=== PATIENT | female | born 1995 | race Caucasian/White ===

== ENCOUNTER 2022-11-26 17:58 | Outpatient (REF) | payer MEDICAID, SELFPAY | END 2022-11-26 17:59 | disposition home or self-care (01) | LOC: NCHCN 17:58 | PROVIDERS: Visit Provider Family Medicine | DX: J02.9 Acute pharyngitis, unspecified (principal) | CPT/HCPCS: 87070 ==

== ENCOUNTER 2023-02-01 08:24 | Emergency (ER) | payer MEDICAID, SELFPAY ==
[2023-02-01 08:25] VITALS: BP 149/84; PULSE 71; RESP 15; TEMP 36.7; O2SAT 100
--- OUTSIDE RECORDS SUMMARY | 2023-02-01 08:43 | XMS_ITS | Continuity of Care Document ---
Author Name Unknown Organization [facility] Amb[facility] Address [address] [place] [address] Encounter [facility] NBR [id number] Date(s): 11/25/22 - 11/25/22 [facility] [address], [place] [address] Encounter Diagnosis Acute viral pharyngitis(Discharge Diagnosis) - 11/25/22 Discharge Disposition: Home or Self Care Attending Physician: Abdias JAVED, Katie Medications Ferretts Iron 325 mg (106 mg elemental iron) oral tablet 325 mg = 1 tab, Oral, Daily, # 90 tab, 0 Refill(s) Start Date: 11/25/22 Status: Ordered levothyroxine 125 mcg (0.125 mg) oral tablet 125 mcg = 1 tab, Oral, Daily, # 30 tab, 0 Refill(s) Start Date: 11/25/22 Status: Ordered Vitamin B-12 250 mcg =, Oral, Daily, 0 Refill(s) Start Date: 11/25/22 Status: Ordered Vitamin C 500 mg oral tablet 500 mg = 1 tab, Oral, Daily, # 90 tab, 0 Refill(s) Start Date: 11/25/22 Status: Ordered Vitamin D3 10,000 intl units oral capsule 250 mcg = 1 cap, Oral, Daily, # 5 cap, 0 Refill(s) Start Date: 11/25/22 Status: Ordered Results Laboratory List Name Date Rapid Strep POCT 11/25/22 Most recent to oldest [Reference Range]: 1 Rapid Strep POCT [Negative] Negative (11/25/22 11:00 AM) Vital Signs Most recent to oldest [Reference Range]: 1 Temperature Tympanic [36.6-37.9 Deg C] 3 6.4 Deg C *LOW* (11/25/22 10:43 AM) Peripheral Pulse Rate [60-100 bpm] 98 bp m (11/25/22 10:43 AM) Blood Pressure [90-140/60-90 mmHg] 130/8 2mmHg (11/25/22 10:43 AM) Weight 119.29 kg (11/25/22 10:43 AM) Weight Measured (lbs) 262.989 lb (11/25/22 10:43 AM) Height 176 cm (11/25/22 10:43 AM) Height/Length Measured (inches) 69.29 in (11/25/22 10:43 AM) BSA Measured 2.41 m2 (11/25/22 10:43 AM) Body Mass Index 38.51 kg/m2 (11/25/22 10:43 AM) Hospital Discharge Instructions Patient Education 11/25/2022 10:12:39 Pharyngitis Pharyngitis Pharyngitis is inflammation of the throat (pharynx). It is a very common cause of sore throat. Pharyngitis can be caused by a bacteria, but it is usually caused by a virus. Most cases of pharyngitis get better on their own without treatment. What are the causes? This condition may be caused by: ??? Infection by viruses (viral). Viral pharyngitis spreads easily from person to person (is contagious) through coughing, sneezing, and sharing of personal items or utensils such as cups, forks, spoons, and toothbrushes. ??? Infection by bacteria (bacterial). Bacterial pharyngitis may be spread by touching the nose or face after coming in contact with the bacteria, or through close contact, such as kissing. ??? Allergies. Allergies can cause buildup of mucus in the throat (post-nasal drip), leading to inflammation and irritation. Allergies can also cause blocked nasal passages, forcing breathing throughthe mouth, which dries and irritates the throat. What increases the risk? You are more likely to develop this condition if: ??? You are 5???24 years old. ??? You are exposed to crowded environments such as daycare, school, or dormitory living. ??? You live in a cold climate. ??? You have a weakened disease-fighting (immune) system. What are the signs or symptoms? Symptoms of this condition vary by the cause. Common symptoms of this condition include: ??? Sore throat. ??? Fatigue. ??? Low-grade fever. ??? Stuffy nose (nasal congestion) and cough. ??? Headache. Other symptoms may include: ??? Glands in the neck (lymph nodes) that are swollen. ??? Skin rashes. ??? Plaque-like film on the throat or tonsils. This is often a symptom of bacterial pharyngitis. ??? Vomiting. ??? Red, itchy eyes (conjunctivitis). ??? Loss of appetite. ??? Joint pain and muscle aches. ??? Enlarged tonsils. How is this diagnosed? This condition may be diagnosed based on your medical history and a physical exam. Your health careprovider will ask you questions about your illness and your symptoms. A swab of your throat may be done to check for bacteria (rapid strep test). Other lab tests may also be done, depending on the suspected cause, but these are rare. How is this treated? Many times, treatment is not needed for this condition. Pharyngitis usually gets better in 3???4 days without treatment. Bacterial pharyngitis may be treated with antibiotic medicines. Follow these instructions at home: Medicines ??? Take hjyf-upa-pnjhdeu and prescription medicines only as told by your health care provider. ??? If you were prescribed an antibiotic medicine, take it as told by your health care provider. Donot stop taking the antibiotic even if you start to feel better. ??? Use throat sprays to soothe your throat as told by your health care provider. ??? Children can get pharyngitis. Do not give your child aspirin because of the association with Little's syndrome. Managing pain To help with pain, try: ??? Sipping warm liquids, such as broth, herbal tea, or warm water. ??? Eating or drinking cold or frozen liquids, such as frozen ice pops. ??? Gargling with a mixture of salt and water 3???4 times a day or as needed. To make salt water, completely dissolve ?1 tsp (3???6 g) of salt in 1 cup (237 mL) of warm water. ??? Sucking on hard candy or throat lozenges. ??? Putting a cool-mist humidifier in your bedroom at night to moisten the air. ??? Sitting in the bathroom with the door closed for 5???10 minutes while you run hot water in the shower. General instructions ??? Do not use any products that contain nicotine or tobacco. These products include cigarettes, chewing tobacco, and vaping devices, such as e-cigarettes. If you need help quitting, ask your health care provider. ??? Rest as told by your health care provider. ??? Drink enough fluid to keep your urine pale yellow. How is this prevented? To help prevent becoming infected or spreading infection: ??? Wash your hands often with soap and water for at least 20 seconds. If soap and water are not available, use hand special deputy sheriff. ??? Do not touch your eyes, nose, or mouth with unwashed hands, and wash hands after touching theseareas. ??? Do not share cups or eating utensils. ??? Avoid close contact with people who are sick. Contact a health care provider if: ??? You have large, tender lumps in your neck. ??? You have a rash. ??? You cough up green, yellow-brown, or bloody mucus. Get help right away if: ??? Your neck becomes stiff. ??? You drool or are unable to swallow liquids. ??? You cannot drink or take medicines without vomiting. ??? You have severe pain that does not go away, even after you take medicine. ??? You have trouble breathing, and it is not caused by a stuffy nose. ??? You have new pain and swelling in your joints such as the knees, ankles, wrists, or elbows. These symptoms may represent a serious problem that is an emergency. Do not wait to see if the symptoms will go away. Get medical help right away. Call your local emergency services (911 in the [place] Do not drive yourself to the hospital. Summary ??? Pharyngitis is redness, pain, and swelling (inflammation) of the throat (pharynx). ??? While pharyngitis can be caused by a bacteria, the most common causes are viral. ??? Most cases of pharyngitis get better on their own without treatment. ??? Bacterial pharyngitis is treated with antibiotic medicines. This information is not intended to replace advice given to you by your health care provider. Make sure you discuss any questions you have with your health care provider. Document Revised: 07/05/2021 Document Reviewed: 07/05/2021 [employer] Patient Education ?? 2022 [email or web address]. Physician Outpatient Note * Katie Calero PA-C: PERFORM Event Display: Office Clinic Note Physician Authored Date: [id number] ROSCOE GANT :1995 Age:27 years Sex:Female Visit Date:11/25/2022 Chief Complaint Pt complains of a sore throat and thinks she has strep, feels like I have glass in my throat, fever 101.4F was the highest, taking tylenol and ibuprofen History of Present Illness Patient is a??27-year-old female who presents to the urgent care office today with??2 days of??sorethroat, headache and fever.?? She has not had any coughing, runny nose, ear pain, body aches,??vomiting, diarrhea, chest pain or shortness of breath. ??She has been using ibuprofen Tylenol [id number] for symptom management.?? History of recurrent??tonsillitis??due to strep in the past.?? No recent sick contacts. ??No international travel.?? Up-to-date with her vaccinations. Physical Exam Vitals & Measurements T:??36.4?C ??(Tympanic)?? HR:??98??(Peripheral)?? BP:??130/82?? SpO2:??98%?? HT:??176??cm?? WT:??119.29??kg?? BMI:??38.51?? BSA:??2.41?? Acutely ill-appearing but in no acute distress, accompanied by her 2 children. Conjunctiva are clear. TMs are both normal pearly schmitz. ??No cervical lymphadenopathy. Clear rhinorrhea. ??No tenderness to the mastoid sinuses. No trismus. Tonsils are nonerythematous and without exudate. ??No bulging of the soft palate. ??No petechiae, vesicles or papules on the soft palate. ??Uvula is midline. Lung sounds are clear in all lobes. Medical Decision Making: Sore throat: 27-year-old female with??24-hour history of sore throat, fever and headache. ??Rapid strep negative. ??Pending PCR strep results.?? Also differential includes viral??pharyngitis. ??I recommended only symptomatic treatment at this point with ibuprofen, Tylenol, salt water gargles,??sorethroat lozenges.?? I recommended that she be seen again if the symptoms are persisting greater than10 days,??check for mono.?? She declined discharge instructions. Assessment/Plan 1.??Acute viral pharyngitis??J02.9 Patient Education Pharyngitis Problem List/Past Medical History Ongoing No qualifying data Historical No qualifying data Medications Ferretts Iron 325 mg (106 mg elemental iron) oral tablet, 325 mg= 1 tab, Oral, Daily levothyroxine 125 mcg (0.125 mg) oral tablet, 125 mcg= 1 tab, Oral, Daily Vitamin B-12, 250 mcg, Oral, Daily Vitamin C 500 mg oral tablet, 500 mg= 1 tab, Oral, Daily Vitamin D3 10,000 intl units oral capsule, 250 mcg= 1 cap, Oral, Daily Allergies No active allergies Lab Results Test Name Test Result Date/Time Rapid Strep POCT Negative 11/25/2022 11:00 EDT Electronically Signed on 11/25/22 05:30 PM Katie Calero PA-C
--- OUTSIDE RECORDS SUMMARY | 2023-02-01 08:43 | XMS_ITS | Continuity of Care Document ---
Author Name Unknown Organization [facility] Address [address] [place] [address] Encounter [facility] NBR [id number] Date(s): 11/25/22 - 11/25/22 [facility] [address] [place] [address]- Discharge Disposition: Home or Self Care Attending Physician: Katie Calero PA-C Admitting Physician: Katie Calero PA-C Medications Ferretts Iron 325 mg (106 mg [...] Status: Ordered Results Laboratory List Name Date Strep A ([facility]) 11/25/22 Most recent to oldest [Reference Range]: 1 Streptococcus A -Gene[facility] [Not Detected ] Not Detected (11/25/22 11:10 AM)
--- NOTE | 2023-02-01 08:45 | ED.GENADUL_ITS ---
Discharge Plan Disposition Patient Disposition: Home Discharge Details Clinical Impression: Abdominal pain Primary Care Provider: None,None ED Provider: Rogelio Evans Home Meds and New Rx's Prescriptions: New ondansetron 4 mg tablet,disintegrating 4 mg PO Q8H PRN (Reason: nausea and vomiting) Qty: 10 0RF Continued levothyroxine 125 mcg capsule 125 mcg PO DAILY cholecalciferol (vitamin D3) 250 mcg (10,000 unit) capsule 250 mcg PO DAILY ferrous sulfate [Feosol] 325 mg (65 mg iron) tablet 325 mg PO DAILY ascorbic acid (vitamin C) 1,000 mg capsule 1 g PO Q6H Discharge Instructions Instructions: Abdominal Pain (ED) Additional Instructions: Please use wttt-oew-[id number] Mylanta as directed on packaging. It is recommended over the next 24 hours you start with a clear liquid diet and then slowly advance your diet as tolerated. Return to the emergency department for any new or significant worsening of symptoms otherwise follow-up with your primary care provider for recheck. As discussed please do not take any histamine medication such as Benadryl or Pepcid as you are excellently given more than the ordered dose in the emergency department. Monitor for extreme sedation or altered mental status and return immediately if this occurs. Referrals: [facility] [Provider Group] - 1 week Medical Decision Making Patient presenting to the emergency department for chief complaint of abdominal pain. Patient reports around 5:00pm yesterday patient started having progressively worsening abdominal pain causing nausea vomiting and diarrhea. She does state some referred back pain because of this along with a headache. Patient denies any fever chills, respiratory symptoms, chest pain or shortness of breath, denies urinary and vaginal symptoms as well. Physical exam shows female patient in moderate amount of visible pain with marked tenderness to palpation of the right lower and upper quadrants, patient did state some CVA tenderness but no marked increase in pain with CVA testing, exam otherwise noncontributory. Differential diagnosis to include kidney stone, cholecystitis, appendicitis, or other undifferentiated abdominal pathology. We will plan on checking labs and urine and performing CT imaging. Pending results will give patient fluids, Zofran, ketorolac and morphine. Reviewed patient's labs and CBC along with CMP is noncontributory and no specific significant remarkable findings are noted, urinalysis shows high specific gravity but otherwise no blood or signs of infection noted. CT imaging was unremarkable, patient reassessed and continues to have right upper quadrant pain so will perform ultrasound imaging to further evaluate gallbladder. Ultrasound imaging also reviewed and is unremarkable. Patient given Mylanta and Pepcid and did have some improvement of symptoms. Will refer patient to primary care provider for recheck of abdominal pain and otherwise prescribe some Zofran and recommended continued use of [id number] Pepcid and Mylanta. After discussion of diagnosis and plan of care patient has no further needs, questions, or concerns and states clear understanding to return to the emergency department for any worsening symptoms. At time of discharge incident was reviewed and patient accidentally received 400 mg of Pepcid compared to the ordered dose of 40 mg. Spoke with our pharmacist along with poison control that reviewed possible side effects but no significant concern for serious harm given patient's vital signs labs and BMI. Did inform patient of the unintentional Medicare along with symptoms to watch out for. Recommended that she have friend or family member be at home with her to observe for any extreme sedation or change in condition which she is stated that she would be admitted there. Patient discharged in stable condition. This documentation was generated using [employer] dictation system, please disregard any oddities of phrase or misspellings. Imaging Data Radiologic Study: Imaging: CT Scan Radiologist's impression: Exam(s) CT ABDOMEN PELVIS W EXAM: CT ABDOMEN PELVIS W CLINICAL HISTORY: RU/LQ pain. TECHNIQUE: Imaging Protocol: Axial computed tomography images with coronal and sagittal reformatted images were created and reviewed CONTRAST MATERIAL: Intravenous: Omnipaque 350 Contrast volume:100 ml Oral: no COMPARISON: No exams were available for comparison FINDINGS: ABDOMEN: Lung Bases: Normal where visualized. Liver: Enlarged. Moderate hepatic steatosis. No measurable mass. Gallbladder and biliary tract: No radiodense calculus or dilation. Pancreas: Normal density, no abnormal calcifications or inflammatory process. Spleen: Normal. Kidneys: Normal size, contour and axis. No radiodense stones or obstructive uropathy. No suspicious masses seen. Adrenal glands: No masses seen. Vasculature: Abdominal aorta non-dilated. Soft tissues: Unremarkable. PELVIS: Bladder: No gross wall thickening. No calculi.No focal mass. Bowel: No obstruction. No bowel wall thickening. Appendix normal. Quantity of stool. Peritoneal cavity: No ascites, collection or mesenteric inflammatory response. Bones: Unrem degenerative disc changes at L4-5. Reproductive organs: Post hysterectomy. Ovaries appear normal. Lymph nodes: Unremarkable. IMPRESSION:: Unremarkable CT scan of the abdomen and pelvis. Radiologic Study #2: Imaging: CT Scan Radiologist's impression: Exam(s) US ABDOMEN LIMITED EXAM: US ABDOMEN LIMITED CLINICAL HISTORY: RUQ pain TECHNIQUE: Ultrasound abdomen performed using standard protocol. COMPARISON: CT CT ABDOMEN PELVIS W from 02/01/2023 FINDINGS: GALLBLADDER: No evidence of cholelithiasis. No evidence of wall thickening. No pericholecystic fluid identified. LORD'S SIGN: Negative. BILIARY SYSTEM: No intrahepatic or extrahepatic biliary ductal dilation. RIGHT KIDNEY: Normal size. No evidence of renal calculi. No evidence of hydronephrosis. No suspicious renal mass. No cyst identified. PANCREAS: Normal where visualized. ASCITES: None seen. IMPRESSION: Normal sonographic appearance of the right upper quadrant. Lab Data Lab results reviewed: Yes I reviewed the patient's lab results. HPI General Mode of arrival: ambulatory . Date/Time Provider Initiated Documentation: 02/01/23 08:32 . Limitations to Documentation: no limitations . Information obtained by: patient and RN notes reviewed . History of Present Illness 27 year old F presents to the emergency department with the chief complaint of Abdominal pain, described as moderate and severe, Quality is described as aching, and is localized to the abdomen. Patient reports radiation to back. Patient started experiencing this day(s) (1) and it has been constant. No relieving factors improve symptom(s), No exacerbating factors reported . Patient notes nausea/vomiting. Patient did receive the following treatments prior to arrival, none Related Data Home Medications Medication Instructions Recorded Confirmed ascorbic acid (vitamin C) 1,000 mg 1 g PO Q6H 01/28/23 02/01/23 capsule cholecalciferol (vitamin D3) 250 250 mcg PO DAILY 01/28/23 02/01/23 mcg (10,000 unit) capsule ferrous sulfate 325 mg (65 mg 325 mg PO DAILY 01/28/23 02/01/23 iron) tablet (Feosol) levothyroxine 125 mcg capsule 125 mcg PO DAILY 01/28/23 02/01/23 ondansetron 4 mg disintegrating 4 mg PO Q8H PRN nausea and 02/01/23 tablet vomiting #10 tabs Previous Rx's Medication Instructions Recorded ondansetron 4 mg disintegrating 4 mg PO Q8H PRN nausea and 02/01/23 tablet vomiting #10 tabs Allergies Allergy/AdvReac Type Severity Reaction Status Date / Time No Known Allergies Allergy Verified 02/01/23 08:31 General Stated Complaint: Abd Prob GREGORY: 3 Review of Systems Constitutional Constitutional: Denies chills, Denies fever(s) and Reports poor appetite Cardiovascular Cardiovascular: Denies chest pain and Denies dyspnea Respiratory Respiratory: Denies cough and Denies dyspnea Gastrointestinal Gastrointestinal: Reports as per HPI, Reports abdominal pain, Denies melena, Denies change in bowel habits, Denies constipation, Reports diarrhea, Reports nausea and Reports vomiting Genitourinary Genitourinary: Denies hematuria, Denies dysuria and Denies flank pain Musculoskeletal Musculoskeletal: Reports back pain Integumentary/Breasts Skin/Breast: Denies rash PFSH All Active Problems (Updated 02/01/23 @ 13:17 by Rogelio Evans NP) Abdominal pain (Acute) Lula's thyroiditis (Acute) Surgical History (Updated 02/01/23 @ 08:47 by Rogelio Evans NP) Previous section S/P partial hysterectomy Social History Smoking/Tobacco Use Status: Never Smoking risk assessment performed?: Yes Alcohol Intake: never Drug use: Never Substance use type: does not use Housing: house Do you feel safe at home: Yes Do you feel safe in your relationship?: Yes Exam Const General: cooperative Orientation: alert, awake and oriented x3 Resp Effort & Inspection: normal respiratory effort and able to speak in complete sentences Auscultation: clear to auscultation bilaterally Cardio Rate: regular rate Rhythm: regular rhythm Heart Sounds: S1 normal and S2 normal GI Palpation: soft, no hepatosplenomegaly, not firm, no guarding, no masses, no pulsatile masses, not rigid, no splenomegaly and tender in the RLQ and in the RUQ Auscultation: normal bowel sounds Back/Spine/Pelvis Back: no CVA tenderness Neuro General: patient alert, patient awake, patient oriented x3, gait normal and moves all extremities Course Vital Signs Vital signs: Vital Signs Temperature 36.7 C 02/01/23 08:25 Pulse 71 02/01/23 08:25 Respiratory Rate 15 02/01/23 08:25 Blood Pressure 149/84 H 02/01/23 08:25 Pulse Oximetry 100 02/01/23 08:25 Temperature 36.7 C 02/01/23 08:25 Temperature Source Temporal Artery Scan 02/01/23 08:25 Pulse 71 02/01/23 08:25 Respiratory Rate 15 02/01/23 08:25 Respiratory Effort Normal 02/01/23 08:29 Blood Pressure 149/84 H 02/01/23 08:25 Blood Pressure Position Sitting 02/01/23 08:25 Pulse Oximetry 100 02/01/23 08:25 Oxygen Delivery Method Room Air 02/01/23 08:25 Oxygen Flow Rate 0 02/01/23 08:25 Pain Level 10 02/01/23 08:25
[2023-02-01 09:07] LABS: Abs Immature Grans 0.02 10^3/uL (0.0-0.06); Absolute Basophil Count 0.04 10^3/uL (0.0-0.2); Absolute Eosinophil Count 0.03 10^3/uL (0.0-0.7); Absolute Lymphocyte Count 2.37 10^3/uL (1.2-3.4); Absolute Monocyte Count 0.76 10^3/uL (0.1-0.8); Absolute Neutrophil Count 7.26 10^3/uL (1.2-6.7); Basophils % 0.4; Eosinophils % 0.3; HCT 43.3 % (36.0-46.0); HGB 14.1 g/dL (11.2-15.7); Immature Grans % 0.2; Lymphocytes % 22.6; MCH 26.7 pg (27.0-33.0); MCHC 32.6 % (32.0-36.0); MCV 82 fL (80-95); MPV 9.7 fL (8.0-11.0); Monocytes % 7.3; Neutrophils % 69.2; Platelet Count 318 10^3/uL (130-400); RBC 5.28 10^6/uL (3.93-5.22); RDW 14.4 % (11.7-14.6); WBC 10.48 10^3/uL (4.4-10.8)
[2023-02-01] MEDS: Ondansetron 4 MG/2 ML VIAL IVP (09:15)
[2023-02-01] MEDS: Normal Saline 1,000 ML 1000 ML IV (09:15)
[2023-02-01 09:17] LABS: Bilirubin Negative (Negative); Blood Negative (Negative); Clarity Clear (Clear); Glucose Negative (Negative); Ketones Negative (Negative); Leukocyte Esterase Negative (Negative); Nitrite Negative (Negative); Specific Gravity >= 1.030 (1.005-1.025); Urobilinogen 0.2 mg/dL (Up to 0.2)
[2023-02-01] MEDS: Ketorolac 15 MG/ML VIAL IVP (09:18)
[2023-02-01 09:20] VITALS: PULSE 53; RESP 12; O2SAT 98
[2023-02-01 09:33] LABS: ALT 31 U/L (14-59); AST 19 U/L (15-37); Albumin 3.8 g/dL (3.4-5.0); Alkaline Phosphatase 71 U/L (46-116); Anion Gap 8.5 mmol/L (3-11); BUN 14 mg/dL (7-18); Bilirubin, Total 0.4 mg/dL (0.2-1.0); CO2 26.5 mmol/L (21.0-32.0); CREATININE 0.7 mg/dL (0.55-1.02); Calcium 9.4 mg/dL (8.5-10.1); Chloride 103 mmol/L (98-107); Estimated GFR 120.74 (mL/min/1.73m2); Glucose 114 mg/dL (74-106); Lipase 32 U/L (16-77); Magnesium 2.1 mg/dL (1.8-2.4); Potassium 3.9 mmol/L (3.5-5.1); Sodium 138 mmol/L (136-145); Total Protein 8.3 g/dL (6.4-8.2)
[2023-02-01] MEDS: Normal Saline - Diluent 50 ML VIAL IV (10:04)
[2023-02-01] MEDS: Omnipaque 350 MG/ML 500 ML BTL-Imaging package IJ (10:06)
--- NOTE | 2023-02-01 10:10 | DI.CT_ITS ---
Exam(s) CT ABDOMEN PELVIS W EXAM: CT ABDOMEN PELVIS W CLINICAL HISTORY: RU/LQ pain. TECHNIQUE: Imaging Protocol: Axial computed tomography images with coronal and sagittal reformatted images were created and reviewed CONTRAST MATERIAL: Intravenous: Omnipaque 350 Contrast volume:100 ml Oral: no COMPARISON: No exams were available for comparison FINDINGS: ABDOMEN: Lung Bases: Normal where visualized. Liver: Enlarged. Moderate hepatic steatosis. No measurable mass. Gallbladder and biliary tract: No radiodense calculus or dilation. Pancreas: Normal density, no abnormal calcifications or inflammatory process. Spleen: Normal. Kidneys: Normal size, contour and axis. No radiodense stones or obstructive uropathy. No suspicious m asses seen. Adrenal glands: No masses seen. Vasculature: Abdominal aorta non-dilated. Soft tissues: Unremarkable. PELVIS: Bladder: No gross wall thickening. No calculi.No focal mass. Bowel: No obstruction. No bowel wall thickening. Appendix normal. Quantity of stool. Peritoneal cavity: No ascites, collection or mesenteric inflammatory response. Bones: Unrem degenerative disc changes at L4-5. Reproductive organs: Post hysterectomy. Ovaries appear normal. Lymph nodes: Unremarkable. IMPRESSION:: Unremarkable CT scan of the abdomen and pelvis. RADIATION DOSE DELIVERED: Total DLP DATA REPOSITORY: All CT scans at this facility are submitted to the National Radiology Data Registry (NRDR) Dose Index Registry (DIR) with the [employer] (ACR). RADIATION OPTIMIZATION: All CT scans at this facility use at least one of these dose optimization te chniques: automated exposure control; mA and/or kV adjustment per patient size (includes targeted exa ms where dose is matched to clinical indication); or iterative reconstruction.
[2023-02-01 10:38] VITALS: O2SAT 98
[2023-02-01 10:40] VITALS: O2SAT 97
--- NOTE | 2023-02-01 10:45 | DI.US_ITS ---
Exam(s) US ABDOMEN LIMITED EXAM: US ABDOMEN LIMITED CLINICAL HISTORY: RUQ pain TECHNIQUE: Ultrasound abdomen performed using standard protocol. COMPARISON: CT CT ABDOMEN PELVIS W from 02/01/2023 FINDINGS: GALLBLADDER: No evidence of cholelithiasis. No evidence of wall thickening. No pericholecystic fluid identified. LORD'S SIGN: Negative. BILIARY SYSTEM: No intrahepatic or extrahepatic biliary ductal dilation. RIGHT KIDNEY: Normal size. No evidence of renal calculi. No evidence of hydronephrosis. No suspicious renal mass. No cyst identified. PANCREAS: Normal where visualized. ASCITES: None seen. IMPRESSION: Normal sonographic appearance of the right upper quadrant. DATA REPOSITORY:
[2023-02-01] MEDS: Mylanta Suspension 30 ML CUP PO (12:17)
--- NOTE | 2023-02-01 13:23 | NUR.NOTE ---
Referral faxed for Pt to be seen at [facility]. She has been given an appt time to establish a [facility] Dr previously. So that is why the fax was sent there. It was recommended that Pt be seen within 1-2 weeks.
[2023-02-01 13:32] VITALS: BP 140/62; PULSE 62; RESP 18; O2SAT 100
== END 2023-02-01 14:12 | disposition home or self-care (01) ==
PROVIDERS: Emergency Provider Nurse Practitioner Family
DX: R10.9 Unspecified abdominal pain (principal); R11.2 Nausea with vomiting, unspecified; R19.7 Diarrhea, unspecified; E06.3 Autoimmune thyroiditis; Z79.899 Other long term (current) drug therapy
CPT/HCPCS: 36415; 80053; 83690; 96361; 96374; 96375; 99285; 74177; 76705; 81003; 83735; 85025; J1885; J2405

== ENCOUNTER 2023-02-02 18:02 | Emergency (ER) | payer MEDICAID, SELFPAY ==
[2023-02-02 18:06] VITALS: BP 142/88; PULSE 57; RESP 18; TEMP 36.9; O2SAT 97
[2023-02-02 18:31] LABS: Bilirubin Negative (Negative); Blood Negative (Negative); Clarity Clear (Clear); Glucose Negative (Negative); Ketones Negative (Negative); Leukocyte Esterase Negative (Negative); Nitrite Negative (Negative); Specific Gravity 1.025 (1.005-1.025); Urobilinogen 0.2 mg/dL (Up to 0.2)
[2023-02-02] MEDS: Ondansetron 4 MG/2 ML VIAL IVP (18:34)
[2023-02-02] MEDS: Normal Saline 1,000 ML 1000 ML IV (18:35)
[2023-02-02] MEDS: Sucralfate 1 GM TAB PO (18:35)
[2023-02-02] MEDS: ACETAMINOPHEN 1,000 MG/100 ML BTL 400 MG IVPB (18:36)
[2023-02-02 18:43] LABS: Abs Immature Grans 0.03 10^3/uL (0.0-0.06); Absolute Basophil Count 0.07 10^3/uL (0.0-0.2); Absolute Eosinophil Count 0.12 10^3/uL (0.0-0.7); Absolute Monocyte Count 1.13 10^3/uL (0.1-0.8); Basophils % 0.6; HCT 42.6 % (36.0-46.0); HGB 13.8 g/dL (11.2-15.7); Immature Grans % 0.2; Lymphocytes % 23.7; MCHC 32.4 % (32.0-36.0); MCV 83 fL (80-95); MPV 9.9 fL (8.0-11.0); Monocytes % 9.2; Neutrophils % 65.3; Platelet Count 330 10^3/uL (130-400); RBC 5.12 10^6/uL (3.93-5.22); RDW 14.3 % (11.7-14.6); RDW-SD 43.3 fL
[2023-02-02 18:48] LABS: Absolute Lymphocyte Count 2.92 10^3/uL (1.2-3.4); Absolute Neutrophil Count 8.03 10^3/uL (1.2-6.7)
[2023-02-02 19:07] LABS: ALT 38 U/L (14-59); AST 23 U/L (15-37); Albumin 4.1 g/dL (3.4-5.0); Alkaline Phosphatase 75 U/L (46-116); Anion Gap 8.7 mmol/L (3-11); BUN 12 mg/dL (7-18); Bilirubin, Total 0.2 mg/dL (0.2-1.0); CO2 29.3 mmol/L (21.0-32.0); CREATININE 0.7 mg/dL (0.55-1.02); Calcium 9.3 mg/dL (8.5-10.1); Chloride 102 mmol/L (98-107); Estimated GFR 120.74 (mL/min/1.73m2); Glucose 97 mg/dL (74-106); Lipase 40 U/L (16-77); Magnesium 2.3 mg/dL (1.8-2.4); Potassium 3.6 mmol/L (3.5-5.1); Sodium 140 mmol/L (136-145); Total Protein 8.5 g/dL (6.4-8.2); Troponin I < 50 ng/L (<or=60)
[2023-02-02] MEDS: HYDROmorphone 2 MG/ML SYR 0.5 MG IVP (19:07)
[2023-02-02] MEDS: Pantoprazole 40 MG VIAL IVP (19:40)
[2023-02-02] MEDS: Normal Saline - Diluent 50 ML VIAL IJ (21:06)
[2023-02-02] MEDS: Omnipaque 350 MG/ML 100 ML BTL IJ (21:09)
--- NOTE | 2023-02-02 21:14 | DI.CT_ITS ---
Exam(s) CT ABDOMEN PELVIS W EXAM: CT ABDOMEN PELVIS W CLINICAL HISTORY: abd/epgastric pain. TECHNIQUE: Imaging Protocol: Axial computed tomography images with coronal and sagittal reformatted images were created and reviewed CONTRAST MATERIAL: Intravenous: Omnipaque 350 Contrast volume:100 ml Oral: no COMPARISON: CT CT ABDOMEN PELVIS W from 02/01/2023 FINDINGS: ABDOMEN and PELVIS: Lung Bases: Normal dependent changes. Liver: Enlarged. Hepatic steatosis. No measurable mass. Gallbladder and biliary tract: No radiodense calculus or dilation. Pancreas: Normal density. No abnormal calcifications or inflammatory process. No evidence of mass. Spleen: Normal. Kidneys: Normal size, contour and axis. No radiodense stones. No obstructive uropathy. No suspicious masses seen. Adrenal glands: No masses seen. Vasculature: Abdominal aorta non-dilated. Soft tissues: Unremarkable. Bladder: No gross wall thickening. No calculi.No focal mass. Bowel: No obstruction. No bowel wall thickening. Appendix normal. Peritoneal cavity: No ascites. No focal collection or mesenteric inflammatory response. Bones: Degenerative disc changes at L4-5. Scattered tiny sclerotic foci in the pelvis and proximal f emurs likely bone islands. Reproductive organs: Status post hysterectomy. Ovaries unremarkable. Lymph nodes: Scattered small mesenteric lymph nodes. Unchanged from prior. IMPRESSION:: No acute abnormality. RADIATION DOSE DELIVERED: Total DLP DATA REPOSITORY: All CT scans at this facility are submitted to the National Radiology Data Registry (NRDR) Dose Index Registry (DIR) with the [employer] (A[employer]). RADIATION OPTIMIZATION: All CT scans at this facility use at least one of these dose optimization te chniques: automated exposure control; mA and/or kV adjustment per patient size (includes targeted exa ms where dose is matched to clinical indication); or iterative reconstruction.
--- NOTE | 2023-02-02 21:33 | ED.GENADUL_ITS ---
Discharge Plan Disposition Patient Disposition: Home Discharge Details Clinical Impression: Abdominal pain Primary Care Provider: None,None ED Provider: Rogelio Evans Home Meds and New Rx's Prescriptions: New sucralfate [Carafate] 1 gram tablet 1 g PO BID Qty: 30 0RF pantoprazole [Protonix] 20 mg tablet,delayed release (DR/EC) 20 mg PO DAILY 28 Days Qty: 28 0RF Continued levothyroxine 125 mcg capsule 125 mcg PO DAILY cholecalciferol (vitamin D3) 250 mcg (10,000 unit) capsule 250 mcg PO DAILY ferrous sulfate [Feosol] 325 mg (65 mg iron) tablet 325 mg PO DAILY ascorbic acid (vitamin C) 1,000 mg capsule 1 g PO Q6H ondansetron 4 mg tablet,disintegrating 4 mg PO Q8H PRN (Reason: nausea and vomiting) Qty: 10 0RF Discharge Instructions Instructions: Abdominal Pain (ED) Additional Instructions: As discussed please have bowel rest for the next 24 to 48 hours with clear liquid diet only and then slowly advancing your diet tube bland food such as plain rice, we will check in, or toast. Then if that goes well please slowly increase your diet as tolerated. A referral has been given to general surgery for you to follow-up given your significant abdominal pain. Please take the new medications as prescribed unless changed by specialty provider or your primary care doctor. Please return for any new or significant worsening of symptoms. Referrals: [facility] [Provider Group] Medical Decision Making Patient presenting the emergency department for chief complaint of abdominal pain. Patient was seen by myself yesterday for the same complaint and she states that pain has been unchanged and has not improved at all. She has been following recommendations except did have some food today. She states only nausea no vomiting, 1 episode of loose stools but continued pretty severe pain and discomfort in the abdomen. Physical exam is pretty much the same as yesterday with soft abdomen no rigidity, tenderness in the right upper and lower quadrants with some noted in the epigastrium otherwise nonfocal exam. We will plan on rechecking patient's labs, giving acetaminophen and Zofran. Initially thought about giving ketorolac but there is some concern for possible peptic ulcer so we will hold off on any NSAIDs or steroids. We will give Carafate Reviewed labs which does show some leukocytosis which was not present yesterday but otherwise unremarkable labs, urine is also unremarkable and no blood or infection is noted. Reassessed patient and she still was not feeling any better so she was given small amount of hydromorphone. Patient reassessed and still not improving in spite of hydromorphone. Discussed with patient CT imaging given continued pain and discomfort that is concerning the patient, slight leukocytosis, and lack of improvement. After discussion of risk versus benefit we did decide to proceed with CT imaging. Pending those results will give GI cocktail and Protonix. Repeat CT imaging compared to yesterday's imaging by radiologist and shows multiple nonpathologic lymph nodes in the upper abdomen and right lower quadrant that may be the cause of patient's discomfort. Question if this is possible viral etiology. I do not believe that patient has any surgical emergency. Reassessed patient to discuss CT imaging and she does state improvement of overall symptoms. I do feel this is reassuring and that patient is appropriate for discharge. We will place patient on referral to general surgery for recheck of abdominal pain and discussion of possible further testing as needed especially if continued outpatient Protonix and Carafate are not effective. After discussion of diagnosis and plan of care patient has no further needs, questions, or concerns and states clear understanding to return to the emergency department for any worsening symptoms. This documentation was generated using [employer] dictation system, please disregard any oddities of phrase or misspellings. Imaging Data Radiologic Study: Imaging: CT Scan Radiologist's impression: Exam(s) PROCEDURE INFORMATION: Exam: CT Abdomen And Pelvis With Contrast Exam date and time: 02/02/2023 9:08 PM Age: 27 years old Clinical indication: Abdominal pain; Epigastric TECHNIQUE: Imaging protocol: Computed tomography of the abdomen and pelvis with contrast. Radiation optimization: All CT scans at this facility use at least one of these dose optimization techniques: automated exposure control; mA and/or kV adjustment per patient size (includes targeted exams where dose is matched to clinical indication); or iterative reconstruction. Contrast material: OMNI 350; Contrast volume: 100 ml; Contrast route: INTRAVENOUS (IV); COMPARISON: CT ABDOMEN PELVIS W 02/01/2023 10:05 AM FINDINGS: Lungs: The visualized lung bases are clear Liver: Normal. No mass. Gallbladder and bile ducts: Normal. No calcified stones. No ductal dilation. Pancreas: Normal. No ductal dilation. Spleen: Normal. No splenomegaly. Adrenal glands: Normal. No mass. Kidneys and ureters: Normal. No hydronephrosis. Stomach and bowel: Unremarkable. No obstruction. No mucosal thickening. Appendix: No evidence of appendicitis. Intraperitoneal space: Unremarkable. No free air. No significant fluid collection. Vasculature: Unremarkable. No abdominal aortic aneurysm. Lymph nodes: There are multiple lymph nodes in the right lower abdominal quadrant with the largest measuring up to 9 mm in short axis. There are lymph nodes in the noah hepatis measuring up to 8 mm in short axis. There are small lymph nodes in the gastrohepatic ligament. No enlarged pelvic sidewall or inguinal adenopathy. Urinary bladder: Unremarkable as visualized. Reproductive: Uterus is again not visualized and likely surgically absent. Ovaries are grossly unremarkable. Bones/joints: Multiple well-defined round 1-4 mm sclerotic lesions are scattered throughout the pelvis and bilateral proximal femora. These are unchanged and are likely multiple bone islands. No acute bone findings. Soft tissues: Unremarkable. IMPRESSION: 1. Multiple nonpathologic sized lymph nodes in the upper abdomen and right lower abdominal quadrant. These are unchanged from the prior study. 2. Multiple 1-4 mm focal sclerotic lesions in the pelvis and proximal femora. 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 Lab Data Lab results reviewed: Yes I reviewed the patient's lab results. HPI General Date/Time Provider Initiated Documentation: 02/02/23 18:03 . Limitations to Documentation: no limitations . Information obtained by: patient and RN notes reviewed . History of Present Illness 27 year old F presents to the emergency department with the chief complaint of Abdominal pain, described as moderate, severe and similar to prior episodes, Related Data Home Medications Medication Instructions Recorded Confirmed ascorbic acid (vitamin C) 1,000 mg 1 g PO Q6H 01/28/23 02/02/23 capsule cholecalciferol (vitamin D3) 250 250 mcg PO DAILY 01/28/23 02/02/23 mcg (10,000 unit) capsule ferrous sulfate 325 mg (65 mg 325 mg PO DAILY 01/28/23 02/02/23 iron) tablet (Feosol) levothyroxine 125 mcg capsule 125 mcg PO DAILY 01/28/23 02/02/23 ondansetron 4 mg disintegrating 4 mg PO Q8H PRN nausea and 02/01/23 02/02/23 tablet vomiting #10 tabs pantoprazole 20 mg tablet,delayed 20 mg PO DAILY 4 weeks #28 tabs 02/02/23 release (Protonix) sucralfate 1 gram tablet (Carafate) 1 g PO BID #30 tabs 02/02/23 Previous Rx's Medication Instructions Recorded ondansetron 4 mg disintegrating 4 mg PO Q8H PRN nausea and 02/01/23 tablet vomiting #10 tabs pantoprazole 20 mg tablet,delayed 20 mg PO DAILY 4 weeks #28 tabs 02/02/23 release (Protonix) sucralfate 1 gram tablet (Carafate) 1 g PO BID #30 tabs 02/02/23 Allergies Allergy/AdvReac Type Severity Reaction Status Date / Time No Known Allergies Allergy Verified 02/02/23 18:41 General Stated Complaint: Abd Prob GREGORY: 3 Review of Systems Constitutional Constitutional: Denies chills, Denies fever(s) and Reports poor appetite Cardiovascular Cardiovascular: Denies chest pain and Denies dyspnea Respiratory Respiratory: Denies cough and Denies dyspnea Gastrointestinal Gastrointestinal: Reports as per HPI, Reports abdominal pain, Denies melena, Denies change in bowel habits, Denies constipation, Reports diarrhea, Reports nausea and Reports vomiting Genitourinary Genitourinary: Denies hematuria, Denies dysuria and Denies flank pain Musculoskeletal Musculoskeletal: Reports back pain Integumentary/Breasts Skin/Breast: Denies rash PFSH All Active Problems Abdominal pain (Acute) Lula's thyroiditis (Acute) Surgical History Previous section S/P partial hysterectomy Social History Smoking/Tobacco Use Status: Never Smoking risk assessment performed?: Yes Alcohol Intake: never Drug use: Never Substance use type: does not use Housing: house Do you feel safe at home: Yes Do you feel safe in your relationship?: Yes Exam Const General: cooperative Orientation: alert, awake and oriented x3 Resp Effort & Inspection: normal respiratory effort and able to speak in complete sentences Auscultation: clear to auscultation bilaterally Cardio Rate: regular rate Rhythm: regular rhythm Heart Sounds: S1 normal and S2 normal GI Palpation: soft, no hepatosplenomegaly, not firm, no guarding, no masses, no pulsatile masses, not rigid, no splenomegaly and tender in the RLQ and in the RUQ Auscultation: normal bowel sounds Back/Spine/Pelvis Back: no CVA tenderness Neuro General: patient alert, patient awake, patient oriented x3, gait normal and moves all extremities Course Vital Signs Vital signs: Vital Signs Temperature 36.9 C 02/02/23 18:06 Pulse 57 L 02/02/23 18:06 Respiratory Rate 18 02/02/23 18:06 Blood Pressure 142/88 H 02/02/23 18:06 Pulse Oximetry 97 02/02/23 18:06 Temperature 36.9 C 02/02/23 18:06 Temperature Source Skin 02/02/23 18:06 Pulse 57 L 02/02/23 18:06 Respiratory Rate 18 02/02/23 18:06 Respiratory Effort Normal 02/02/23 18:40 Blood Pressure 142/88 H 02/02/23 18:06 Pulse Oximetry 97 02/02/23 18:06 Pain Level 9 02/02/23 18:06 Lab/Test Results Lab/Test Results: Laboratory Tests Range/Units 02/02/23 02/02/23 18:24 18:32 WBC (4.4-10.8) 10^3/uL 12.30 H RBC (3.93-5.22) 10^6/uL 5.12 Hgb (11.2-15.7) g/dL 13.8 Hct (36.0-46.0) % 42.6 MCV (80-95) fL 83 MCH (27.0-33.0) pg 27.0 MCHC (32.0-36.0) % 32.4 RDW (11.7-14.6) % 14.3 Plt Count (130-400) 10^3/uL 330 MPV (8.0-11.0) fL 9.9 Immature Gran % 0.2 Neutrophils % 65.3 Lymphocytes % 23.7 Monocytes % 9.2 Eosinophils % 1.0 Basophils % 0.6 Nucleated RBC % (0.0-0.3) % 0.0 Absolute Neutrophils (1.2-6.7) 10^3/uL 8.03 H Absolute Lymphocytes (1.2-3.4) 10^3/uL 2.92 Absolute Monocytes (0.1-0.8) 10^3/uL 1.13 H Absolute Eosinophils (0.0-0.7) 10^3/uL 0.12 Absolute Basophils (0.0-0.2) 10^3/uL 0.07 Sodium (136-145) mmol/L 140 Potassium (3.5-5.1) mmol/L 3.6 Chloride (98-107) mmol/L 102 Carbon Dioxide (21.0-32.0) mmol/L 29.3 Anion Gap (3-11) mmol/L 8.7 BUN (7-18) mg/dL 12 Creatinine (0.55-1.02) mg/dL 0.7 Est GFR (CKD-EPI 2020) (mL/min/1.73m2) 120.74 Glucose (74-106) mg/dL 97 Calcium (8.5-10.1) mg/dL 9.3 Magnesium (1.8-2.4) mg/dL 2.3 Total Bilirubin (0.2-1.0) mg/dL 0.2 AST (15-37) U/L 23 ALT (14-59) U/L 38 Alkaline Phosphatase (46-116) U/L 75 Troponin I (<or=60) ng/L < 50 Total Protein (6.4-8.2) g/dL 8.5 H Albumin (3.4-5.0) g/dL 4.1 Lipase (16-77) U/L 40 Urine Color (Yellow) Yellow Urine Clarity (Clear) Clear Urine pH (5-8) 6.0 Ur Specific [place] (1.005-1.025) 1.025 Urine Protein (Negative) mg/dL Negative Urine Ketones (Negative) mg/dL Negative Urine Blood (Negative) Negative Urine Nitrite (Negative) Negative Urine Bilirubin (Negative) Negative Urine Urobilinogen (Up to 0.2) mg/dL 0.2 Ur Leukocyte Esterase (Negative) Negative Urine Glucose (Negative) mg/dL Negative POC- Test(urine) Negative
--- NOTE | 2023-02-02 22:15 | DI.VRAD_ITS ---
PROCEDURE INFORMATION: Exam: CT Abdomen And Pelvis With Contrast Exam date and time: 02/02/2023 9:08 PM Age: 27 years old Clinical indication: Abdominal pain; Epigastric TECHNIQUE: Imaging protocol: Computed tomography of the abdomen and pelvis with contrast. Radiation optimization: All CT scans at this facility use at least one of these dose optimization techniques: automated exposure control; mA and/or kV adjustment per patient size (includes targeted exams where dose is matched to clinical indication); or iterative reconstruction. Contrast material: OMNI 350; Contrast volume: 100 ml; Contrast route: INTRAVENOUS (IV); COMPARISON: CT ABDOMEN PELVIS W 02/01/2023 10:05 AM FINDINGS: Lungs: The visualized lung bases are clear Liver: Normal. No mass. Gallbladder and bile ducts: Normal. No calcified stones. No ductal dilation. Pancreas: Normal. No ductal dilation. Spleen: Normal. No splenomegaly. Adrenal glands: Normal. No mass. Kidneys and ureters: Normal. No hydronephrosis. Stomach and bowel: Unremarkable. No obstruction. No mucosal thickening. Appendix: No evidence of appendicitis. Intraperitoneal space: Unremarkable. No free air. No significant fluid collection. Vasculature: Unremarkable. No abdominal aortic aneurysm. Lymph nodes: There are multiple lymph nodes in the right lower abdominal quadrant with the largest measuring up to 9 mm in short axis. There are lymph nodes in the noah hepatis measuring up to 8 mm in short axis. There are small lymph nodes in the gastrohepatic ligament. No enlarged pelvic sidewall or inguinal adenopathy. Urinary bladder: Unremarkable as visualized. Reproductive: Uterus is again not visualized and likely surgically absent. Ovaries are grossly unremarkable. Bones/joints: Multiple well-defined round 1-4 mm sclerotic lesions are scattered throughout the pelvis and bilateral proximal femora. These are unchanged and are likely multiple bone islands. No acute bone findings. Soft tissues: Unremarkable. IMPRESSION: 1. Multiple nonpathologic sized lymph nodes in the upper abdomen and right lower abdominal quadrant. These are unchanged from the prior study. 2. Multiple 1-4 mm focal sclerotic lesions in the pelvis and proximal femora. 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 Dictated and Authenticated by: Quincy Marinelli MD. Ordering:JOSE Mercado MD
[2023-02-02 22:52] VITALS: BP 159/90; PULSE 48; RESP 16; O2SAT 98
--- NOTE | 2023-02-02 22:52 | NUR.NOTE ---
Pt placed on care management for referral to General Surgery for abdominal pain , with a -CT, and -ultrasound. Per ER doctor would like patient to be seen within 1-2 weeks.
== END 2023-02-02 22:59 | disposition home or self-care (01) ==
PROVIDERS: Emergency Provider Nurse Practitioner Family
DX: R10.13 Epigastric pain (principal); R11.0 Nausea; K76.0 Fatty (change of) liver, not elsewhere classified
CPT/HCPCS: 36415; 80053; 81025; 83690; 96361; 96374; 96375; 99285; 74177; 81003; 83735; 84484; 85025; J0131; J1170; J2405; J3490

== ENCOUNTER 2023-02-15 11:44 | Day surgery (SDC) | payer MEDICAID, SELFPAY ==
[2023-02-15 12:48] VITALS: BP 128/92; PULSE 76; RESP 20; TEMP 36.6; O2SAT 98
--- NOTE | 2023-02-15 13:49 | PDOC.DSDIS_ITS ---
Date of service: 02/15/23 Time of Service: 13:49 Discharge Plan Disposition Patient Disposition: Home Condition: Good Discharge Details Reason For Visit: stomach scope/EGD Attending Provider: Lauren Shoemaker Primary Care Provider: Sanju Walker Home Meds and New Rx's Prescriptions: No Action levothyroxine 125 mcg capsule 125 mcg PO DAILY cholecalciferol (vitamin D3) 250 mcg (10,000 unit) capsule 250 mcg PO DAILY ferrous sulfate [Feosol] 325 mg (65 mg iron) tablet 325 mg PO DAILY ascorbic acid (vitamin C) 1,000 mg capsule 1 g PO Q6H propranolol [Inderal LA] 60 mg capsule,extended release 24 hr 60 mg PO DAILY ondansetron 4 mg tablet,disintegrating 4 mg PO Q8H PRN (Reason: nausea and vomiting) Qty: 10 0RF sucralfate [Carafate] 1 gram tablet 1 g PO BID Qty: 30 0RF pantoprazole [Protonix] 20 mg tablet,delayed release (DR/EC) 20 mg PO DAILY 28 Days Qty: 28 0RF Discharge Instructions Additional Instructions: Post EGD Instruction ?You had anesthesia for your EGD/stomach scope today.? For your safety, please do the following for the next twenty-four (24) hours: Do Not operate a motor vehicle (car, truck, motorcycle, etc.) Do Not drink alcoholic beverages or use any recreational drugs for the first 24 hours or while taking pain medications. The medications in your body may have a reaction that can be dangerous. Do Not make any important decisions or sign any important papers You have just had a gastroscopy (EGD) or upper GI tract examination. It is important for your smooth recovery that you carefully follow the recommendations below. Do not hesitate to call if any questions should arise about your anesthesia, condition, or care. -Symptoms you may experience during the next 24 hours: ?1. Mild abdominal pain or excessive gas or a bloated feeling which improves with rest, liquids, eating? slightly, and walking as tolerated. 2. Drowsiness and/or forgetfulness because of the medications you were given. ?3. Throat numbness for about 1 hour. 4. A sore throat which you can treat with throat lozenges or by gargling with salt water 4-5 times a day. 5. Redness at the site of your IV which you can treat with warm compresses. SPECIAL INSTRUCTIONS: 1. You may resume your previous diet in one hour. We recommend a light meal to start, then progress as tolerated. 2. Restart regular medications in one hour. 3. No aspirin or non-steroidal containing medication for three days. 4. No lifting over 20 pounds or strenuous activity for the first 24 hours after your procedure. After 24 hours there are no restrictions on your activity, but you may feel fatigued for a few days. Findings: Mild esophagitis -Medications:cont to take protonix and carafate -Schedule HIDA scan if you hav enot done so already. -Continue to follow lifestyle modifications: No alcohol, tobacco products, Aspirin or NSAID's (ibuprofen, Motrin, Naprosyn, aleve, etc).? Try to limit/avoid:? soda pop/any carbonated beverages, caffeine (including tea & chocolate), and acidic foods, (tomatoes, citrus, onions, peppermints) spicy or fried/fatty foods. Do not lie down for 30 minutes after eating, and do not eat 2 hours prior to bedtime. Avoid wearing tight fitting clothing/ belts. Follow up: 2-3 wks in the office to review Biopsy and HIDA scan results Call the office at [phone] (Office) or [phone] (Hospital), or go to the ER right away if you notice any of the followin. Vomiting blood and /or ?coffee ground? material. ?2. Worsening of abdominal pain or cramping. ?3. Trouble with breathing, cough, and/or fever (temperature above 101.5 F). 4. Increasing pain with swallowing. ?5. Chest pain. 6. Any new symptoms. 7. Worsening of the redness at the IV site Stand Alone Forms: Anesthesia Discharge Inst., Dipti Flower (DSU) Activity:: see above Diet:: see above Discharge Orders Discharge Orders: Discharge Order (Routine); Ordered 02/15/23 Ordered By: Lauren Shoemaker DS: Diagnosis Discharge Diagnosis (1) Esophagitis: Status: Acute (2) Chronic GERD: Status: Acute (3) Epigastric pain: Status: Acute Asessment and Plan: Patient is seen and examined after they are endoscopy.? Patient has minimal sore throat.? They have been able to tolerate liquids.? They do not have any nausea vomiting.? They are not having any chest pain or shortness of breath.? They have been able to pass gas and are not having any abdominal pain or distention.? They have not vomited any blood.? The vital signs have been stable-see nursing notes. We discussed findings on their endoscopy. We reviewed the importance of lifestyle modification-see discharge instructions We reviewed any new medications that the patient may be prescribed-see discharge instructions Patient will either be sent a letter with the biopsy results or follow-up in the office-see discharge instructions. Patient was given explicit instructions to follow-up regarding post endoscopy- refer to discharge Patient verbalized understanding and discharged in stable and satisfactory condition.? See nursing notes.
--- NOTE | 2023-02-15 13:50 | ANES.PREOP_ITS ---
General Info Date of Service Date Performed: 02/15/23 Height: 5 ft 9 in Weight: 127.9 kg Body Mass Index (BMI): 41.6 Surgical Procedure: Operation Date: 02/15/23 12:35 Proposed Procedure Side Surgeon p Gastroscopy Lauren Shoemaker, DO Meds Allergies and Home Medications Allergies Allergy/AdvReac Type Severity Reaction Status Date / Time No Known Allergies Allergy Verified 02/15/23 13:05 Home Medication Medication Instructions Recorded ascorbic acid (vitamin C) 1,000 mg 1 g PO Q6H 01/28/23 capsule cholecalciferol (vitamin D3) 250 250 mcg PO DAILY 01/28/23 mcg (10,000 unit) capsule ferrous sulfate 325 mg (65 mg 325 mg PO DAILY 01/28/23 iron) tablet (Feosol) levothyroxine 125 mcg capsule 125 mcg PO DAILY 01/28/23 ondansetron 4 mg disintegrating 4 mg PO Q8H PRN nausea and 02/01/23 tablet vomiting #10 tabs pantoprazole 20 mg tablet,delayed 20 mg PO DAILY 4 weeks #28 tabs 02/02/23 release (Protonix) sucralfate 1 gram tablet (Carafate) 1 g PO BID #30 tabs 02/02/23 propranolol 60 mg capsule,24 60 mg PO DAILY 02/15/23 hr,extended release (Inderal LA) Current Visit Medications: Current Medications Generic Name Dose Route Start Last Admin Trade Name Freq PRN Reason Stop Dose Admin Hyoscyamine Sulfate 0.125 mg 02/15/23 03:12 Hyoscyamine 0.125 Mg Sl/Oral/Chew SL 03/17/23 03:11 DIRECTED PRN Ringer's Solution 1,000 mls @ 80 mls/hr 02/15/23 06:00 IV 02/15/23 23:59 INFUSION [facility] IV Miscellaneous Supplies 1 each 02/15/23 06:00 Iv Access IV 02/15/23 23:59 DIRECTED [facility] Ondansetron HCl 4 mg 02/15/23 03:12 Ondansetron 4 Mg/2 Ml Vial IVP 03/17/23 03:11 Q4H PRN PRN Nausea / Vomiting Sodium Chloride 0 ml 02/15/23 06:00 Normal Saline Flush 10 Ml Syr IV 02/15/23 23:59 PRN PRN Sodium Chloride 0 ml 02/15/23 06:00 Normal Saline 10 Ml Vial IJ 02/15/23 23:59 DIRECTED PRN Sterile Water 0 ml 02/15/23 06:00 Water,Injection,Sterile 10 Ml Vial IJ 02/15/23 23:59 DIRECTED PRN PFSH Active Problems Active Problems: Problem Status Onset Code Acute diarrhea R19.7 Abdominal bloating R14.0 Body mass index (BMI) of 40.1 to 44.9 in adult Z68.41 Epigastric pain R10.13 Family history of gallbladder disease in father Z83.79 Postprandial RUQ pain R10.11 Chronic GERD K21.9 Lula's thyroiditis E06.3 Surgical History Surgical History Previous section S/P partial hysterectomy Tobacco Smoking/Tobacco Use Status: Never Alcohol Alcohol Intake: never Substance Use Substance use: Never Substance use type: does not use Vital Signs and Lab Results Vital Signs Most Recent Vital Signs in EMR: Most Recent Vital Signs Temp Pulse Resp BP Pulse Ox 36.6 C 76 20 128/92 H 98 02/15/23 12:48 02/15/23 12:48 02/15/23 12:48 02/15/23 12:48 02/15/23 12:48 Lab Results Blood Type / Crossmatch: No Data to Display Complete Blood Count: White Blood Count 12.30 10^3/uL (4.4-10.8) H 02/02/23 18:32 Red Blood Count 5.12 10^6/uL (3.93-5.22) 02/02/23 18:32 Hemoglobin 13.8 g/dL (11.2-15.7) 02/02/23 18:32 Hematocrit 42.6 % (36.0-46.0) 02/02/23 18:32 Platelet Count 330 10^3/uL (130-400) 02/02/23 18:32 Complete Metabolic Panel: Sodium 140 mmol/L (136-145) 02/02/23 18:32 Potassium 3.6 mmol/L (3.5-5.1) 02/02/23 18:32 Chloride 102 mmol/L (98-107) 02/02/23 18:32 Carbon Dioxide 29.3 mmol/L (21.0-32.0) 02/02/23 18:32 BUN 12 mg/dL (7-18) 02/02/23 18:32 Creatinine 0.7 mg/dL (0.55-1.02) 02/02/23 18:32 Est GFR (CKD-EPI 2020) 120.74 (mL/min/1.73m2) 02/02/23 18:32 Magnesium 2.3 mg/dL (1.8-2.4) 02/02/23 18:32 Calcium 9.3 mg/dL (8.5-10.1) 02/02/23 18:32 Albumin 4.1 g/dL (3.4-5.0) 02/02/23 18:32 Glucose 97 mg/dL (74-106) 02/02/23 18:32 Liver Function Panel: Alanine Aminotransferase (ALT/SGPT) 38 U/L (14-59) 02/02/23 18: 32 Aspartate Amino Transf (AST/SGOT) 23 U/L (15-37) 02/02/23 18:32 Coagulation Panel: No Data to Display Cardiac Panel: Troponin I < 50 ng/L (<or=60) 02/02/23 Arterial Blood Gas: No Data to Display Venous Blood Gas: No Data to Display Pancreas Panel: Lipase 40 U/L (16-77) 02/02/23 18:32 Thyroid Panel: No Data to Display Infectious Disease: No Data to Display Blood Cultures: No Data to Display Toxicology Panel: No Data to Display Panel: No Data to Display Anesthesia Assessment and Plan Anesthesia History Personal History: No History of Anesthesia Complications Family History: No Family History of Anesthesia Complications Exercise Tolerance Exercise Tolerance: Metabolic Equivalents>4 Pertinent Negatives Pertinent Negatives: No Symptoms of GERD Cardiac & Pulmonary Exam Cardiac Exam: Normal S1/S2 Heart Sounds Pulmonary Exam: Clear Bilateral Breath Sounds Implantable Cardiac Device Does patient have a Pacemaker or an ICD?: No Airway Exam Known Difficult Airway: No Mallampati Class: 2 Mouth Opening: Normal (> 3cm) Thyromental Distance: Greater than 3 cm Neck Range of Motion: Full ROM Neck Circumference: Normal Teeth Condition: Normal Dentition ASA Classification ASA Score: ASA 2 Emergency Case?: No NPO Status NPO Status: NPO Clears >2 hours, Solids >8 hours Status Status: Not Relevant due to Medical History Anesthesia Plan Resuscitation Status: Full Code Anesthesia Technique: General Anesthesia Airway Planned: Natural Airway Monitors Used: Standard Monitors
[2023-02-15 13:51] VITALS: BMI 41.6
[2023-02-15] MEDS: Lactated Ringers 1,000 ML 80 ML IV (14:01)
--- NOTE | 2023-02-15 14:10 | STOM_PTH ---
PATIENT: Jessica Hopkins LOC: [facility] U#:[id number] AGE/SX: 27/F ROOM: RE02/15/[address]: Lauren Shoemaker : 1995 BED: DIS: 02/15/2023 SPEC #: [id number] RECD: 02/15/23 16:15 STATUS: ANGELA REQ #: [id number] TRINI: 02/15/23 14:[address]: Lauren Shoemaker DEPT: Surgical Specimen RECD BY: Corina Reno ENTERED: 02/15/23 16:17 SP TYPE: STOMACH OTHR DR: Sanju Walker Tissues: 1 - BIOPSY BOWEL 2 - BIOPSY BOWEL 3 - STOMACH BIOPSY 4 - STOMACH BIOPSY 5 - ESOPHAGUS BIOPSY 6 - ESOPHAGUS BIOPSY Procedures: GROSS AND MICRO LEVEL 4 Comments: [id number]
[2023-02-15 14:24] VITALS: BP 137/94; PULSE 83; RESP 18; TEMP 36.4; O2SAT 98
--- NOTE | 2023-02-15 14:31 | W.ANESPOSTOP ---
Postoperative Evaluation Date, Time and Location Date Performed: 02/15/23 Time Performed: 14:31 Patient Location: Day Surgery Unit Vital Signs Most Recent Imported Vital Signs: Most Recent Vital Signs Temp Pulse Resp BP Pulse Ox 36.6 C 76 20 128/92 H 98 02/15/23 12:48 02/15/23 12:48 02/15/23 12:48 02/15/23 12:48 02/15/23 12:48 Pain Score Most Recent Pain Score: Most Recent Pain Score Pain Level 5 02/15/23 12:48 Assessment Mental Status: Awake (Alert & Oriented to Patient Baseline) Airway and Respiratory Function: Patent airway with normal (patient baseline) respiratory exam Cardiovascular Function: Hemodynamically Stable Hydration Status: Adequately Hydrated Nausea & Vomiting: No Nausea or Vomiting Pain: Pt. Denies Any Pain Peripheral Nerve Block: Patient did not receive a nerve block
[2023-02-15 14:52] VITALS: BP 142/93; PULSE 74; RESP 18; TEMP 36.7; O2SAT 99
--- NOTE | 2023-02-22 11:21 | W.PM.ENDDOP ---
Date of service: 02/15/23 Time of Service: 13:00 Endoscopy Report DATE OF PROCEDURE: 02/15/23 PRE-OP DIAGNOSIS: epigastric pain POST-OP DIAGNOSIS: other (esohpagitis ) SURGEON: Lauren Shoemaker ANESTHESIA TYPE: General:No Airway ESTIMATED BLOOD LOSS: 2 PATHOLOGY: other COMPLICATIONS: None DISPOSITION: same day PROCEDURE DESCRIPTION: After informed consent was obtained the patient was take to the procedure room and placed in a supine position. Monitors were applied and a time out was done. The patients name, date of , procedure type, allergies to medications and metal in their body was reviewed. A bite block was placed and the patient was sedated. Once sedated and comfortable the gastroscope was advanced through the oropharynx which was grossly normal into the esophagus. The proximal and mid-esophagus were normal. In the distal esophagus there was mild esophagitis at the GE junction. There is no hiatal hernias/strictures/varices. Normal Rhuli Gel all specimen is retrieved and no bleeding is noted. The scope was advanced into the stomach and through the pylorus into the 3rd portion of the duodenum. The duodenum was noted to be . Biopsies were done, all specimens are retrieved and no bleeding is noted. The scope was retracted back into the stomach and biopsies were done to rule out H. pylori. There were no gastritis or ulcers in the stomach. The scope was retroflexed. The cardia and fundus were noted to be normal. There no hiatal hernia noted. The scope was retracted back into the esophagus and biopsies were done of the GE junction to rule out Atkinson's. The Z line was regular. The GE junction was at 38 cm from the lips. The scope was removed and the patient was woken up and taken back to [facility] in stable condition. Follow up: after hida scan
== END 2023-02-15 15:42 | disposition home or self-care (01) ==
PROVIDERS: PCP Family Medicine; Visit Provider Surgery
PROC: 0DJ68ZZ Inspection of Stomach, Via Natural or Artificial Opening Endoscopic (ICD-10-PCS; CPT 43235; principal; 2023-02-15 12:30)
DX: K20.90 Esophagitis, unspecified without bleeding; K21.9 Gastro-esophageal reflux disease without esophagitis; R10.13 Epigastric pain; K22.89 Other specified disease of esophagus
CPT/HCPCS: 43239; 88305; J2001

== ENCOUNTER → 2023-02-28 01:42 | Outpatient (CLI) | payer MEDICAID, SELFPAY ==
[2023-02-28] MEDS: Water,Injection,Sterile 10 ML VIAL IJ (13:42)
[2023-02-28] MEDS: Sincalide 5 MCG VIAL 1.9 MCG IJ (13:46)
--- NOTE | 2023-02-28 15:30 | DI.NM_ITS ---
Exam(s) NM HEPATOBILIARY CCK GRP EXAM: NM HEPATOBILIARY CCK GRP CLINICAL HISTORY: ruq pain/back pain/ nausea/diarrhea R14.0 ABD DISTENSION R19.7 DIARRHEA. TECHNIQUE: Injected dose: 5 mCi Tc-99 mebrofenin Initial dynamic images: 60 minutes Post-Gallbladder fillin.02 mcg/kg CCK intravenously over a 45 min infusion. Additional images: 45 minute dynamic during CCK administration. COMPARISON: US US ABDOMEN LIMITED from 02/01/2023 FINDINGS: Normal hepatic transit time. Prompt excretion into the small bowel. Prompt excretion into the gallbladder. Gallbladder ejection fraction: 27 percent, below the normal range. IMPRESSION: 1. Gallbladder ejection fraction low at 27 percent [facility] guidelines: Gallbladder visualization should be present by 3 hours. Delayed ufxykze-jb-[id number] burr sit beyond 60 min raises the suspicion for partial common bile duct (CBD) obstruction. Gallbladder ejection fraction <35% has a good correlation with acalculous disease (i.e., chronic acal culous cholecystitis, cystic duct syndrome, sphincter of Oddi disease).
== END ==
PROVIDERS: PCP Family Medicine; Visit Provider Surgery
DX: R93.2 Abnormal findings on diagnostic imaging of liver and biliary tract (principal); R14.0 Abdominal distension (gaseous); R19.7 Diarrhea, unspecified
CPT/HCPCS: 78227; J2805

== ENCOUNTER 2023-03-06 02:15 | Outpatient (CLI) | payer MEDICAID, SELFPAY ==
[2023-03-06 17:40] LABS: C-Reactive Protein 0.87 mg/dL (0.0-0.3); TSH (W/Ref FT4) 4.11 uIU/mL (0.36-3.74)
[2023-03-06 17:57] LABS: Iron 51 ug/dL (50-170); Total Iron Binding Capacity 309 ug/dL (250-450); Transferrin Sat 17 % (15-50)
[2023-03-06 18:32] LABS: Folate 15.6 ng/mL (8.6-20.0); Vitamin B12 873 pg/mL (193-986)
[2023-03-11 15:55] LABS: Baker's Yeast, IgE <0.10 kU/L (<0.70); Barley, IgE <0.10 kU/L (<0.70); Beef IgE <0.10 kU/L (<0.70); Black/White Pepper IgE <0.10 kU/L (<0.70); Broccoli IgE <0.10 kU/L (<0.70); Cacao/Cocoa, IgE <0.10 kU/L (<0.70); Cinnamon, IgE <0.10 kU/L (<0.70); Corn-Food IgE <0.10 kU/L (<0.70); Milk, IgE <0.10 kU/L (<0.70); Onion, IgE <0.10 kU/L (<0.70); Soybean IgE <0.10 kU/L (<0.70); Strawberry, IgE <0.10 kU/L (<0.70); White Potato, IgE <0.10 kU/L (<0.70)
[2023-03-11 17:07] LABS: Banana, IgE <0.10 kU/L (<0.70); Egg Whole IgE <0.10 kU/L (<0.70)
== END 2023-03-06 02:16 | disposition home or self-care (01) ==
PROVIDERS: PCP Family Medicine; Visit Provider Surgery
DX: K20.0 Eosinophilic esophagitis (principal); K21.9 Gastro-esophageal reflux disease without esophagitis; D50.8 Other iron deficiency anemias; E06.3 Autoimmune thyroiditis; K82.8 Other specified diseases of gallbladder; Z68.41 Body mass index [BMI] 40.0-44.9, adult
CPT/HCPCS: 36415; 86003; 82607; 82746; 83540; 83550; 84439; 84443; 86140

== ENCOUNTER 2023-03-12 06:08 | Day surgery (SDC) | payer MEDICAID, SELFPAY ==
--- NOTE | 2023-03-11 15:49 | PDOC.DSDIS_ITS ---
Date of service: 03/12/23 Time of Service: 10:28 Discharge Plan Disposition Patient Disposition: Home Condition: Good Discharge Details Reason For Visit: gallbladder removal Attending Provider: Lauren Shoemaker Primary Care Provider: Sanju Walker Home Meds and New Rx's Prescriptions: New ondansetron 4 mg tablet,disintegrating 4 mg PO TID PRN (Reason: nausea and vomiting) 4 Days Qty: 10 0RF tramadol 50 mg tablet 50 mg PO Q4H PRNQty: 14 0RF Rx Instructions: will cause constipation Continued levothyroxine 125 mcg capsule 125 mcg PO DAILY cholecalciferol (vitamin D3) 250 mcg (10,000 unit) capsule 250 mcg PO DAILY ferrous sulfate [Feosol] 325 mg (65 mg iron) tablet 325 mg PO DAILY ascorbic acid (vitamin C) 1,000 mg capsule 1 g PO Q6H propranolol [Inderal LA] 60 mg capsule,extended release 24 hr 60 mg PO DAILY ondansetron 4 mg tablet,disintegrating 4 mg PO Q8H PRN (Reason: nausea and vomiting) Qty: 10 0RF No Action sucralfate [Carafate] 1 gram tablet 1 g PO BID PRN Patient Comments: Patient reports she takes PRN Discharge Instructions Additional Instructions: Care after Gallbladder Surgery -Pain control: ?For the first 72 hours after surgery, take you pain meds continuously and not just when you have pain.?? Alternate Tylenol 1000mg by mouth every 8 hours, and Ibuprofen 600mg every 6 hours.? Make sure you take ibuprofen with food and not on an empty stomach.? ??Use the tramadol for breakthrough pain- pain that is greater than a 7. ?- Use ICE! Ice really helps to keep the swelling down, and swelling causes pain. ??Twenty minutes on, and then off, continuously for the first 72hours.? A fter the first 72hrs, you can just use the Tylenol, ibuprofen, and ice, when you have pain.?? If you are taking narcotic pain medication, follow the instructions on the label and do not drive. Pain medications can make you very constipated. Make sure you are moving your bowels daily. If not, take Miralax, - Anesthesia makes you very constipated.? Take a dose of milk of magnesia the morning after surgery. ? Use an ice bag for the first 72 hours. This helps to decrease swelling, which causes pain. It is normal to be more sore/painful and swollen towards the end of the day and first thing in the morning. ? Gallbladder surgery can make you very nauseated; use Zofran for nausea, for the first 24 hours. The nausea generally stops after 24 hours. ? Use Miralax ?to prevent constipation (this is a particular side effect of pain medication and anesthesia). Do not allow yourself to become constipated. ? Avoid fatty or greasy foods; introduce these slowly, with care, after about 1 month. High-fat foods include: ? Foods that are fried, like [place] fries and potato chips ? High-fat meats, such as ronquillo, bologna, sausage, ground beef, and ribs, pork products ? High-fat dairy products, such as cheese, ice cream, cream, whole milk, and sour cream ? Pizza ? Foods made with lard or butter ? Creamy soups or sauces ? Meat gravies ? Chocolate ? Oils, such as palm and coconut oil ? Skin of chicken or turkey ? Nuts and nut butters ? Avocadoes ? Start out eating very small, bland amounts of food. Do not take pain pills on an empty stomach. - You will notice purple discoloration around the incisions.? This is the ?skin glue?.? This will wear off on its own.? It is OK to shower after 24hrs.? You do not need to cover the incisions. -You should walk frequently, gradually, increasing the distance. You may climb stairs, just go slowly. ? Do not go swimming or sit in a hot tub for two weeks. ? There are no stitches to remove. ? Do not drive your car x72hrs and then only if you have no pain and can move freely. Do not drive if you are taking pain narcotic pain medications. ? You may resume sexual activity whenever pain and soreness subside, usually in 2 weeks. ? Do no lift anything over 5 lbs. for two weeks. ? You may return to work in one week, or when you feel able, provided you do not have to do any heavy lifting or prolonged standing. ? You should return to Dr. Shoemaker?s office for a post-op appointment about two weeks after surgery. A follow-up should have been scheduled for you already.? If there is not, please call the Surgical Clinic at: [phone] to schedule an appointment. My Medications for pain and nausea are: Tylenol/ibuprofen ?and ultram- for severe pain ?and Zofran-nausea When to Call the Office: ? If the incision becomes red or swollen, or there is more than a little drainage from it. ? If you develop a temperature higher than 100.5 F. ? If your eyes turn yellow ? Vomiting and can?t keep fluids down Activity:: see above Remove Dressings/Wound Care:: 24 hours Shower/Bathe:: 24 hours Diet:: see above Discharge Orders Discharge Orders: Discharge Order (Routine); Ordered 03/12/23 Ordered By: Lauren Shoemaker DS: Diagnosis Discharge Diagnosis (1) Chronic diarrhea: Status: Acute (2) Biliary dyskinesia: Status: Acute Asessment and Plan: The patient is doing well post-op from their [] surgery.? They are having no nausea or vomiting. They are tolerating liquids and a snack. The pt is not having any chest pain or SOB.? Their pain is adequately controlled. They have been able to urinate.? ?HEENT:? no eye pain/drainage/redness/swelling. Mild sore throat ?Cardio- NSR, no chest pain, BP stable- see VS record ?Pulm: no sob or productive cough. No hemoptysis ?Incision- dressing is c/d/i w/ no excessive bleeding or drainage ?I discussed with the patient the findings at the time of surgery and the patient?s progress. ?We reviewed expectations at home; what the patient could expect for recovery t jose elias, and in the post-operative period.? We discussed the importance of walking to avoid blood clots and pneumonia.? We discussed and reviewed the patient's post-operative wound care and dressing needs.?? We reviewed their step-hernández pain management plan, Rx called to the pharmacy of their choice.? We reviewed activity and limitations-see discharge instructions. We reviewed warning signs, and when to seek medical attention- see d/c instructions.?? Patient was given a postoperative follow-up appointment. Patient verbalized understanding of their postoperative instructions, how do to take care of themselves and their incision, and the pain management plan. Please see discharge instructions.? (3) Iron refractory iron deficiency anemia: Status: Acute (4) Allergic eosinophilic esophagitis: Status: Acute (5) Esophagitis: Status: Acute (6) Acute diarrhea: Status: Acute (7) Abdominal bloating: Status: Acute (8) Body mass index (BMI) of 40.1 to 44.9 in adult: Status: Acute (9) Epigastric pain: Status: Acute (10) Family history of gallbladder disease in father: Status: Acute (11) Postprandial RUQ pain: Status: Acute (12) Chronic GERD: Status: Acute (13) Lula's thyroiditis: Status: Acute
[2023-03-12] VITALS (14 sets, daily range): BP systolic 91–119; BP diastolic 39–86; PULSE 45–72; RESP 15–22; TEMP 36.2–36.7; O2SAT 92–99; BMI 41.6
--- NOTE | 2023-03-12 06:34 | W.ANESPRE ---
General Info Date of Service Date Performed: 03/12/23 Height: 5 ft 9 in Weight: 127.9 kg Body Mass Index (BMI): 41.6 Surgical Procedure: Operation Date: 03/12/23 08:10 Proposed Procedure Side Surgeon p Cholecystectomy Laparoscopic possible Open Lauren Shoemaker, Meds Allergies and Home Medications Allergies Allergy/AdvReac Type Severity Reaction Status Date / Time No Known Allergies Allergy Verified 03/12/23 06:27 Home Medication Medication Instructions Recorded ascorbic acid (vitamin C) 1,000 mg 1 g PO Q6H 01/28/23 capsule cholecalciferol (vitamin D3) 250 250 mcg PO DAILY 01/28/23 mcg (10,000 unit) capsule ferrous sulfate 325 mg (65 mg 325 mg PO DAILY 01/28/23 iron) tablet (Feosol) levothyroxine 125 mcg capsule 125 mcg PO DAILY 01/28/23 ondansetron 4 mg disintegrating 4 mg PO Q8H PRN nausea and 02/01/23 tablet vomiting #10 tabs propranolol 60 mg capsule,24 60 mg PO DAILY 02/15/23 hr,extended release (Inderal LA) ondansetron 4 mg disintegrating 4 mg PO TID PRN nausea and 03/11/23 tablet vomiting 4 days #10 tabs tramadol 50 mg tablet 50 mg PO Q4H PRN #14 tabs 03/11/23 sucralfate 1 gram tablet (Carafate) 1 g PO BID PRN 03/12/23 Current Visit Medications: Current Medications Generic Name Dose Route Start Last Admin Trade Name Freq PRN Reason Stop Dose Admin Acetaminophen 1,000 mg 03/12/23 06:00 Acetaminophen 500 Mg Tab PO 03/12/23 23:59 PREOP BRENDA Gabapentin 600 mg 03/12/23 06:00 Gabapentin 300 Mg Cap PO 03/12/23 23:59 PREOP BRENDA Ringer's Solution 1,000 mls @ 80 mls/hr 03/12/23 06:00 IV 03/12/23 23:59 INFUSION BRENDA Cefazolin Sodium 3,000 mg/ 100 mls @ 200 mls/hr 03/12/23 06:00 Sodium Chloride IVPB 03/12/23 16:00 PREOP BRENDA Metronidazole 500 mg in 100 mls @ 100 mls/hr 03/12/23 06:00 Flagyl IVPB 03/12/23 16:00 PREOP BRENDA Ondansetron HCl 4 mg/ Sodium 52 mls @ 200 mls/hr 03/12/23 03:33 Chloride IVPB 04/11/23 03:32 Q6H PRN PRN IV Miscellaneous Supplies 1 each 03/12/23 06:00 Iv Access IV 03/12/23 23:59 DIRECTED BRENDA Indocyanine Green 5 mg 03/12/23 06:00 Indocyanine Green 25 Mg Vial IVP 03/12/23 16:00 DIRECTED BRENDA Morphine Sulfate 2 mg 03/12/23 03:33 Morphine 4 Mg/Ml Syr IVP 04/11/23 03:32 Q1H PRN PRN Sodium Chloride 0 ml 03/12/23 06:00 Normal Saline Flush 10 Ml Syr IV 03/12/23 23:59 PRN PRN Sodium Chloride 0 ml 03/12/23 06:00 Normal Saline 10 Ml Vial IJ 03/12/23 23:59 DIRECTED PRN Sterile Water 0 ml 03/12/23 06:00 Water,Injection,Sterile 10 Ml Vial IJ 03/12/23 23:59 DIRECTED PRN Tramadol HCl 50 mg 03/12/23 03:33 Tramadol 50 Mg Tab PO 04/11/23 03:32 Q6H PRN PRN Pain PFSH Active Problems Active Problems: Problem Status Onset Code Chronic diarrhea K52.9 Biliary dyskinesia K82.8 Iron refractory iron deficiency anemia D50.8 Allergic eosinophilic esophagitis K20.0 Esophagitis K20.90 Acute diarrhea R19.7 Abdominal bloating R14.0 Body mass index (BMI) of 40.1 to 44.9 in adult Z68.41 Epigastric pain R10.13 Family history of gallbladder disease in father Z83.79 Postprandial RUQ pain R10.11 Chronic GERD K21.9 Danielle's thyroiditis E06.3 Surgical History Surgical History Previous section S/P partial hysterectomy Tobacco Smoking/Tobacco Use Status: Never Alcohol Alcohol Intake: never Substance Use Substance use: Never Substance use type: does not use Vital Signs and Lab Results Vital Signs Most Recent Vital Signs in EMR: Temp Pulse Resp BP Pulse Ox 36.5 C 72 16 119/86 99 03/12/23 06:31 03/12/23 06:31 03/12/23 06:31 03/12/23 06:31 03/12/23 06:31 Lab Results Blood Type / Crossmatch: No Data to Display Complete Blood Count: No Data to Display Complete Metabolic Panel: C-Reactive Protein 0.87 mg/dL (0.0-0.3) H 03/06/23 16:35 Liver Function Panel: No Data to Display Coagulation Panel: No Data to Display Cardiac Panel: No Data to Display Arterial Blood Gas: No Data to Display Venous Blood Gas: No Data to Display Pancreas Panel: No Data to Display Thyroid Panel: Thyroid Stimulating Hormone (TSH) 4.11 uIU/mL (0.36-3.74) H 03/06/23 16:35 Infectious Disease: No Data to Display Blood Cultures: No Data to Display Toxicology Panel: No Data to Display Panel: No Data to Display Anesthesia Assessment and Plan Anesthesia History Personal History: No History of Anesthesia Complications Family History: No Family History of Anesthesia Complications Exercise Tolerance Exercise Tolerance: Metabolic Equivalents>4 Cardiac & Pulmonary Exam Cardiac Exam: Normal S1/S2 Heart Sounds Pulmonary Exam: Clear Bilateral Breath Sounds Implantable Cardiac Device Does patient have a Pacemaker or an ICD?: No Airway Exam Known Difficult Airway: No Mallampati Class: 2 Mouth Opening: Normal (> 3cm) Thyromental Distance: Greater than 3 cm Neck Range of Motion: Full ROM Neck Circumference: Normal Teeth Condition: Normal Dentition ASA Classification ASA Score: ASA 3 Emergency Case?: No NPO Status NPO Status: NPO Clears >2 hours, Solids >8 hours Status Status: History of Hysterectomy Anesthesia Plan Resuscitation Status: Full Code Anesthesia Technique: General Anesthesia Airway Planned: Endotracheal Tube Monitors Used: Standard Monitors Preoperative Comments:: 27 yo female for lap kenney. Sig PMHx: HTN (propranolol), GERD/eosinophilic esophagitis, danielle's (levothyroxine), never smoker, Previous Anes: - EGD, prop, natural airway, no issues.
[2023-03-12] MEDS: Lactated Ringers 1,000 ML 80 ML IV (07:10)
[2023-03-12] MEDS: Gabapentin 300 MG CAP 600 MG PO (07:12)
[2023-03-12] MEDS: Acetaminophen 500 MG TAB 1000 MG PO ×2 (07:13→13:48)
[2023-03-12] MEDS: Normal Saline Flush 10 ML SYR IV (07:14)
[2023-03-12] MEDS: Indocyanine green 25 MG VIAL 5 MG IVP (07:16)
[2023-03-12] MEDS: metroNIDAZOLE 500 MG/100 ML BAG 100 MG IVPB (07:24)
[2023-03-12] MEDS: ceFAZolin 3,000 MG in Normal Saline 100 ML 200 MG IVPB (08:11)
[2023-03-12] MEDS: Bupivacaine 0.25% Pres-Free 30 ML VIAL (08:31)
--- NOTE | 2023-03-12 09:16 | GB_PTH ---
PATIENT: Jessica Hopkins LOC: [facility] U#:[id number] AGE/SX: 27/F ROOM: RE03/12/[address]: Lauren Shoemaker : 1995 BED: DIS: 03/12/2023 SPEC #: [id number] RECD: 03/12/23 11:42 STATUS: ANGELA REQ #: [id number] TRINI: 03/12/23 09:[address]: Lauren Shoemaker DEPT: Surgical Specimen RECD BY: Corina Reno ENTERED: 03/12/23 11:42 SP TYPE: GB OTHR DR: Sanju Walker Tissues: 1 - GALLBLADDER Procedures: GROSS AND MICRO LEVEL 3 Comments: [id number]
--- NOTE | 2023-03-12 10:22 | ROE_ITS ---
Date of service: 03/12/23 Time of Service: 10:22 Operative Note Operative Note DATE OF PROCEDURE: 03/12/23 PRE-OP DIAGNOSIS: Biliary dyskinesia POST-OP DIAGNOSIS: same PROCEDURE: Laparoscopic cholecystectomy SURGEON: Lauren Godfrey PINSETTER MECHANIC HELPER: Seema Muhammad ANESTHESIA TYPE: Local By Surgeon and General LMA/ETT Refer to Anesthesia Record ESTIMATED BLOOD LOSS: 25 PATHOLOGY: other COMPLICATIONS: None Patient was transported to: same day Patient's condition: stable Procedure Description: The pt is seen at the request of there PCP regarding acute on chronic cholecystitis and biliary dyskinesia. The pt has failed outpt conservative medical measures and is here today for laparoscopic cholecystectomy. Informed consent was obtained, explaining risks and benefits of the procedure including but not limited to bleeding, infection, pneumonia, blood clots, possible damage to bowel, bladder, blood vessels, bile ducts, possible open procedure, complications of general anesthesia and other unforetold complications. PROCEDURE: The patient agrees and is brought to the operative room suite and placed in supine position. Pt receives IV ICG preOp to aid w/ bile duct visualization.? Anesthesia was administered per the Department of Anesthesia. The patient did receive IV antibiotics. NG tube and Eldridge catheter are placed. The patient was prepped and draped in the usual sterile fashion using DuraPrep scrub solution. Pause for the cause was done. 20 mL of 1% buffered lidocaine was used for local anesthetization. A stab incision was made in the umbilicus and the Verres inserted. Drop test was positive and insufflation was begun. When 15 mm of pressure was noted on the monitor, the Veress was removed and #5 port inserted. The camera was inserted through the port and shows no damage to underlying structures. A 10 mm port was then placed in the epigastric position under direct visualization following creation of local field blocks as well as two 5 mm ports in the right upper quadrant. The camera was moved to one of the secondary ports so we could view the umbilical trocar site, and there is are no hernias or adhesions. The gallbladder fundus was grasped and retracted towards the right shoulder. Infundibulum was grasped and retracted laterally. The hepat-duodenal ligament is entered. The cystic duct and artery are dissected out and the most inferior portion of the gallbladder plate is removed from the liver and the critical view of safety was obtained after clearing away all fatty material. Endo Clips were placed across the duct and artery and these structures are divided. The remainder of the gallbladder was excised from the liver bed. The gallbladder was placed in a bag and brought out. Examination of the gallbladder shows indeed the cystic duct and artery to have been divided. The remainder of the abdomen was copiously irrigated with a liter of saline. All saline is removed. There is no bleeding or bile leakage from the liver bed or the clips sites. An EndoClose needle was used to close the 10 mm port site with an 0 Vicryl. All ports and instruments are removed. SPonge and needle counts are correct. Pneumoperitoneum is evacuated and the port sites are monitored to make sure there is no bleeding at the time of desufflation. ??Port sites are irrigated and the skin is closed with 4-0 Monocryl in a running subcuticular fashion. Skin glue sterile dressings are applied. The patient tolerated the procedure well without complications, transferred to the recovery room in stable condition. LAUREN GODFREY, DO
[2023-03-12] MEDS: Normal Saline 10 ML VIAL IJ (10:28)
[2023-03-12] MEDS: HYDROmorphone 2 MG/ML SYR IVP ×2 (10:28→11:24)
--- NOTE | 2023-03-12 10:42 | W.ANESPOSTOP ---
Postoperative Evaluation Date, Time and Location Date Performed: 03/12/23 Time Performed: 10:42 Patient Location: PACU Vital Signs Most Recent Imported Vital Signs: Most Recent Vital Signs Temp Pulse Resp BP Pulse Ox 36.4 C L 55 L 20 103/45 L 92 03/12/23 10:27 03/12/23 10:27 03/12/23 10:27 03/12/23 10:27 03/12/23 10:27 Pain Score Most Recent Pain Score: Most Recent Pain Score Pain Level 6 03/12/23 10:27 Assessment Mental Status: Awake (Alert & Oriented to Patient Baseline) Airway and Respiratory Function: Patent airway with normal (patient baseline) respiratory exam Cardiovascular Function: Hemodynamically Stable Hydration Status: Adequately Hydrated Nausea & Vomiting: No Nausea or Vomiting Pain: Pain is Moderate or Severe Postoperative Pain Management: Pain being addressed with medication Peripheral Nerve Block: Patient did not receive a nerve block
[2023-03-12] MEDS: traMADol 50 MG TAB PO (11:28)
[2023-03-12] MEDS: Methocarbamol 750 MG TAB PO (13:25)
== END 2023-03-12 14:35 | disposition home or self-care (01) ==
PROVIDERS: PCP Family Medicine; Visit Provider Surgery
PROC: 0FT44ZZ Resection of Gallbladder, Percutaneous Endoscopic Approach (ICD-10-PCS; CPT 47562; principal; 2023-03-12 08:00)
DX: K82.8 Other specified diseases of gallbladder (principal); Z83.79 Family history of other diseases of the digestive system; R19.7 Diarrhea, unspecified; D50.8 Other iron deficiency anemias; K81.1 Chronic cholecystitis
CPT/HCPCS: 47562; 88304; J0690; J1100; J1170; J1885; J2250; J2405; J2704; J3475

== ENCOUNTER 2023-03-21 08:32 | Outpatient (RCR) | payer MEDICAID, SELFPAY ==
--- NOTE | 2023-03-21 08:30 | RT.EKG_ITS ---
APPROVED REPORT Exam: Resting ECG Reason for Exam: pvc Patient Location: O HR:90 bpm ECG Measurements Heart Rate 90 AXIS VT 152 P 25 QRSd 98 QRS 77 QT 353 T -39 QTc 432 Conclusion Sinus rhythm...normal P axis, V-rate 50- 99 Ventricular bigeminy...bigeminy string>4 w/ V complexes Nonspecific T abnormalities, inferior leads...T <-0.10mV, II III aVF Baseline wander in lead(s) I,V3,V4,V5,V6
--- NOTE | 2023-03-21 08:30 | HOLTER_ITS ---
APPROVED REPORT Conclusion This is a 48-hour Holter monitor ordered for premature ventricular contractions Predominant rhythm was sinus with an average heart rate of 67. Minimum was 35, maximum 108 There were rare atrial premature beats There were moderately frequent ventricular ectopic beats comprising 7.1% of total There was no atrial fibrillation, no high-grade AV block, no pauses greater than 3 seconds No patient symptoms were reported
== END 2023-03-21 23:59 | disposition home or self-care (01) ==
LOC: CARDOPNVT 08:32
PROVIDERS: PCP Family Medicine; Visit Provider Surgery
DX: I49.3 Ventricular premature depolarization (principal)
CPT/HCPCS: 93005; 93010; 93225

== ENCOUNTER 2023-03-27 09:14 | Outpatient (REF) | payer MEDICAID, SELFPAY ==
[2023-03-27 21:21] LABS: Hemoglobin A1C 5.6 % (<5.7)
[2023-03-27 21:32] LABS: TSH (W/Ref FT4) 2.54 uIU/mL (0.36-3.74)
== END 2023-03-27 09:15 | disposition home or self-care (01) ==
LOC: NCHCN 09:14
PROVIDERS: PCP Family Medicine; Visit Provider Family Medicine
DX: E03.9 Hypothyroidism, unspecified (principal); R73.9 Hyperglycemia, unspecified
CPT/HCPCS: 83036; 84443

== ENCOUNTER 2023-03-28 17:04 | Outpatient (RCR) | payer MEDICAID, SELFPAY | END 2023-04-21 23:59 | disposition home or self-care (01) | LOC: CARDOPNVT 17:04 | PROVIDERS: PCP Family Medicine; Visit Provider Surgery | DX: I49.3 Ventricular premature depolarization (principal) | CPT/HCPCS: 93226 ==

== ENCOUNTER 2023-05-07 11:52 | Outpatient (CLI) | payer MEDICAID, SELFPAY ==
--- NOTE | 2023-05-07 11:45 | RT.EKG_ITS ---
APPROVED REPORT Exam: Resting ECG Reason for Exam: PVC's Patient Location: O HR:75 bpm ECG Measurements Heart Rate 75 AXIS KS 146 P 20 QRSd 99 QRS 79 QT 353 T -46 QTc 395 Conclusion Sinus rhythm...normal P axis, V-rate 50- 99 Ventricular premature complex...V complex w/ short R-R interval Nonspecific T abnormalities, inferior leads...T <-0.10mV, II III aVF I have reviewed and interpreted ECG and agree with software generated interpretation.
== END 2023-05-07 11:53 | disposition home or self-care (01) ==
LOC: DI.CARD 11:56
PROVIDERS: PCP Family Medicine; Visit Provider Internal Medicine Interventional Cardiology
DX: I49.3 Ventricular premature depolarization (principal)
CPT/HCPCS: 93010

== ENCOUNTER 2023-07-12 10:25 | Outpatient (CLI) | payer MEDICAID, SELFPAY ==
[2023-07-12 09:34] LABS: HCT 43.6 % (36.0-46.0); HGB 14.3 g/dL (11.2-15.7); MCH 27.4 pg (27.0-33.0); MCHC 32.8 % (32.0-36.0); MCV 84 fL (80-95); MPV 10.6 fL (8.0-11.0); Platelet Count 384 10^3/uL (130-400); RBC 5.22 10^6/uL (3.93-5.22); RDW 13.8 % (11.7-14.6); RDW-SD 42.2 fL; WBC 9.47 10^3/uL (4.4-10.8)
[2023-07-12 10:11] LABS: Hemoglobin A1C 5.9 % (<5.7)
[2023-07-12 10:27] LABS: ALT 49 U/L (14-59); AST 22 U/L (15-37); Alkaline Phosphatase 82 U/L (46-116); Anion Gap 8.2 mmol/L (3-11); BUN 17 mg/dL (7-18); Bilirubin, Total 0.4 mg/dL (0.2-1.0); CO2 28.8 mmol/L (21.0-32.0); CREATININE 0.9 mg/dL (0.55-1.02); Calcium 9.4 mg/dL (8.5-10.1); Calculated LDL 85 mg/dL (<100); Chloride 107 mmol/L (98-107); Cholesterol 146 mg/dL (<200); Glucose 99 mg/dL (74-106); HDL Cholesterol 34 mg/dL (40-60); Potassium 4.3 mmol/L (3.5-5.1); Sodium 144 mmol/L (136-145); TSH 2.33 uIU/Ml (0.36-3.74); Total Protein 8.2 g/dL (6.4-8.2); Triglyceride 136 mg/dL (<150)
[2023-07-12 10:42] LABS: Vitamin D 25 Total 35.4 ng/mL (30-100)
[2023-07-12 18:07] LABS: Thyroglobulin Antibody 23 U/mL (<=60); Thyroperoxidase Antibody 709 U/mL (<=60)
== END 2023-07-12 10:26 | disposition home or self-care (01) ==
LOC: LBO 10:25
PROVIDERS: PCP Family Medicine; Visit Provider Naturopath
DX: E06.3 Autoimmune thyroiditis (principal)
CPT/HCPCS: 36415; 80053; 80061; 82306; 85027; 83036; 84443; 86376; 86800

== ENCOUNTER → 2023-08-02 00:35 | Outpatient (CLI) | payer MEDICAID, SELFPAY ==
--- NOTE | 2023-08-02 | DI.US_ITS ---
Exam(s) US HERNIA EXAM: US HERNIA CLINICAL HISTORY: UMBILICAL PAIN, H/O UMBILICAL HERNIA,r10.33. TECHNIQUE: Ultrasound was performed using standard protocol. COMPARISON: US US ABDOMEN from 08/02/2023 FINDINGS: Dedicated ultrasound examination of the anterior abdominal wall periumbilical region of interest wher e there has apparently concern for hernia. Performed in multiple without and with Valsalva technique . This study did not elicit images consistent with the presence of a hernia at this location, even with Valsalva maneuver. IMPRESSION: No obvious ultrasound evidence of anterior abdominal wall periumbilical hernia. If clinically indica kvng follow-up CT scan can be performed for added sensitivity. DATA REPOSITORY:
--- NOTE | 2023-08-02 | DI.US_ITS ---
Exam(s) US ABDOMEN EXAM: US ABDOMEN CLINICAL HISTORY: UPPER ABD PAIN, R10.10 TECHNIQUE: Ultrasound of complete upper abdomen performed using standard protocol. COMPARISON: CT CT ABDOMEN PELVIS W from 02/01/2023 US US ABDOMEN LIMITED from 02/01/[address] ABDOMEN PELVIS W from 02/02/2023 FINDINGS: There is no ascites evident. LIVER: There is mildly hyperechoic indicating steatosis. There are no discrete focal hepatic lesions . No obvious dilated intra ducts. GALLBLADDER/BILIARY: Gallbladder not seen and presumed to be surgically absent. Gallbladder was pres ent on CT scans of January 2023. The common hepatic duct isnot dilated, measuring 4-5mm at the level of noah hepatis. PANCREAS: There is no evidence of pancreatic mass nor dilatation of the pancreatic duct. SPLEEN: The spleen is not enlarged and there are no intrasplenic lesions evident. KIDNEYS:Kidneys exhibit normal size with no evidence of solid mass, calculus, nor hydronephrosis. No cortical cysts evident. ABDOMINAL AORTA: There is no evidence of abdominal aortic aneurysm. IVC: Normal diameter where visualized. IMPRESSION: 1. Gallbladder now appears to be surgically absent. There is no significant dilatation of biliary t ree. 2. Hepatic steatosis. Liver size slightly prominent. No discrete focal hepatic lesions 3. There is no ascites. DATA REPOSITORY:
== END ==
PROVIDERS: PCP Family Medicine; Visit Provider Naturopath
DX: R10.33 Periumbilical pain (principal); K76.0 Fatty (change of) liver, not elsewhere classified
CPT/HCPCS: 76857; 76700

== ENCOUNTER 2023-12-19 04:03 | Outpatient (CLI) | payer BC, SELFPAY ==
[2023-12-19 08:45] LABS: Abs Immature Grans 0.03 10^3/uL (0.0-0.06); Absolute Basophil Count 0.06 10^3/uL (0.0-0.2); Absolute Eosinophil Count 0.11 10^3/uL (0.0-0.7); Absolute Monocyte Count 0.71 10^3/uL (0.1-0.8); Absolute Neutrophil Count 4.48 10^3/uL (1.2-6.7); Basophils % 0.7 %; Eosinophils % 1.4 %; HCT 44.6 % (36.0-46.0); HGB 14.1 g/dL (11.2-15.7); Immature Grans % 0.4 %; Lymphocytes % 33.4 %; MCHC 31.6 % (32.0-36.0); MCV 85 fL (80-95); Monocytes % 8.8 %; Neutrophils % 55.3 %; Platelet Count 305 10^3/uL (130-400); RBC 5.23 10^6/uL (3.93-5.22); RDW 13.8 % (11.7-14.6); RDW-SD 42.9 fL; WBC 8.09 10^3/uL (4.4-10.8)
[2023-12-19 09:11] LABS: Hemoglobin A1C 5.9 % (<5.7)
[2023-12-19 09:26] LABS: ALT 37 U/L (14-59); AST 23 U/L (15-37); Albumin 3.9 g/dL (3.4-5.0); Alkaline Phosphatase 74 U/L (46-116); Anion Gap 9.1 mmol/L (3-11); BUN 16 mg/dL (7-18); CO2 26.9 mmol/L (21.0-32.0); CREATININE 0.8 mg/dL (0.55-1.02); Calcium 9.1 mg/dL (8.5-10.1); Calculated LDL 113 mg/dL (<100); Chloride 107 mmol/L (98-107); Cholesterol 170 mg/dL (<200); Estimated GFR 102.22 (mL/min/1.73m2); Glucose 104 mg/dL (74-106); HDL Cholesterol 41 mg/dL (40-60); Potassium 4.2 mmol/L (3.5-5.1); Sodium 143 mmol/L (136-145); TSH (W/Ref FT4) 7.26 uIU/mL (0.36-3.74); Triglyceride 84 mg/dL (<150)
[2023-12-19 09:46] LABS: FREE T4 0.84 ng/dL (0.76-1.46)
[2023-12-20 08:54] LABS: Insulin 21.8 uIU/mL (<29.0)
== END 2023-12-19 04:04 | disposition home or self-care (01) ==
LOC: LBO 04:04
PROVIDERS: PCP Naturopath; Visit Provider Family Medicine
DX: R63.5 Abnormal weight gain (principal)
CPT/HCPCS: 36415; 80053; 80061; 83036; 83525; 84439; 84443; 85025

== ENCOUNTER 2024-03-04 14:36 | Outpatient (REF) | payer BC, SELFPAY | END 2024-03-04 14:37 | disposition home or self-care (01) | LOC: LBN 14:36 | PROVIDERS: PCP Naturopath; Visit Provider Nurse Practitioner Family | DX: J02.9 Acute pharyngitis, unspecified (principal) | CPT/HCPCS: 87077; 87070 ==

== ENCOUNTER 2024-06-12 21:30 | Outpatient (REF) | payer OTHER, SELFPAY ==
[2024-06-12 22:17] LABS: TSH (W/Ref FT4) 6.93 uIU/mL (0.36-3.74)
[2024-06-12 22:34] LABS: FREE T4 1.06 ng/dL (0.76-1.46)
== END 2024-06-12 21:31 | disposition home or self-care (01) ==
LOC: LBN 21:30
PROVIDERS: PCP Naturopath; Visit Provider Physician Assistant Medical
DX: E03.9 Hypothyroidism, unspecified (principal)
CPT/HCPCS: 84439; 84443